=== PATIENT | female | born 1945 | race Caucasian/White ===

== ENCOUNTER 2019-04-21 12:59 | Inpatient (IN) | payer MEDICAID ==
[~2019-04-21] VITALS: Ht 144.8 cm; Wt 44.0 kg
[2019-04-21 13:10] VITALS: BP 159/76
--- NOTE | 2019-04-21 14:59 | NUR ---
PT AMBULATED TO BED 04
--- NOTE | 2019-04-21 15:40 | NUR ---
74 Y/O C/O TACHYCARDIA. PT VS STABLE, HR 64. PT STATES SHE HAS BEEN FEELING HER HEART RATE WAS INCREASED X1 DAY. PT DENIES CHEST PAIN, N/V/F OR RECENT ILLNESS. PT VS STABLE. PT ON MONITORS, BED LOWERED, SIDE RAIL X1 IN PLACE. FAMILY MEMBER AT BEDSIDE. BLAKE
--- NOTE | 2019-04-21 15:56 | NUR ---
LAB AT BEDSIDE DRAWING ORDERED LAB WORK.
--- NOTE | 2019-04-21 15:58 | NUR ---
X-RAY AT BEDSIDE PEFORMING ORDERED TEST.
--- NOTE | 2019-04-21 16:17 | NUR ---
PT RESTING COMFORTABLY, GAVE BLANKET. VS STABLE. FAMILY MEMBER AT BEDSIDE. PT INFORMED WAITING FOR TEST RESULTS.
[2019-04-21 16:19] LABS: BASOPHILS % (AUTO) 0.5 % (0.0-2.0); EOSINOPHILS # (AUTO) 0.3 K/uL (0-0.4); EOSINOPHILS % (AUTO) 2.6 % (0.0-4.0); HEMATOCRIT 37.2 % (36-48); HEMOGLOBIN 12.4 g/dL (12.0-16.0); LYMPHOCYTES # (AUTO) 6.9 K/uL (2.5-16.5); LYMPHOCYTES % (AUTO) 68.7 % (20.5-51.1); MEAN CORPUSCULAR HEMOGLOBIN 31 pg (27-31); MEAN CORPUSCULAR HGB CONC 33 g/dL (33-37); MEAN CORPUSCULAR VOLUME 93.7 fL (80-94); MONOCYTES # (AUTO) 0.5 K/uL (0.8-1.0); NEUTROPHILS # (AUTO) 2.3 K/uL (1.8-7.7); NEUTROPHILS % (AUTO) 23.2 % (42.2-75.2); PLATELET COUNT (AUTO) 278 K/uL (140-450); RED BLOOD CELL COUNT(AUTO) 3.97 MIL/uL (4.20-5.40); RED CELL DISTRIBUTION WIDTH 13.2 % (11.6-13.7)
--- NOTE | 2019-04-21 16:45 | NUR ---
PT AMBULATED TO RESTROOM WITHOUT DIFFICULTY.
[2019-04-21 16:50] LABS: ANION GAP 7.9 (8-16); CARBON DIOXIDE 27.5 mmol/L (21-32); CHLORIDE 103 mmol/L (98-107); CREATININE 0.7 mg/dL (0.6-1.3); GLUCOSE 122 mg/dL (74-106); POTASSIUM 3.4 mmol/L (3.5-5.1); SODIUM SERUM 135 mmol/L (136-145); UREA NITROGEN, BLOOD 23 mg/dL (7-18)
[2019-04-21 16:57] LABS: FREE T4 (FREE THYROXINE) 0.93 ng/dL (0.76-1.46); THYROID STIMULATING HORMONE 0.14 uIU/mL (0.34-3.74)
--- NOTE | 2019-04-21 17:03 | NUR ---
PT RESTING COMFORTABLY, VS STABLE. FAMILY AT BEDSIDE.
[2019-04-21] MEDS ORDERED: ONDANSETRON 4 MG/2 ML VIAL IVP PRN (18:00)
[2019-04-21] MEDS ORDERED: HYDROcodone/APAP 7.5/325 MG 1 TAB PO PRN (18:00)
[2019-04-21] MEDS ORDERED: ACETAMINOPHEN 325 MG TAB PO PRN (18:00)
[2019-04-21 19:10] VITALS: BP 140/70
--- NOTE | 2019-04-21 19:10 | NUR ---
RECIEVED PT FROM ER / WHEELCHAIR - ASMBULATES TO BED , AAOX4 , NID , IV SITE INTACT AND PATENT . NO C/O PAIN AT THIS TIME. POC DISCUSSED AND VERBALIZED UNDERSTANDING - CALL LIGHT WITHIN REACH , ON POWDER MIXER . RELATIVE ON BEDSIDE . ON SAFETY PRECAUTION PROTOCOL - REMINDS HER THE USES OF CALL LIGHT FOR ASSISTANCE OR HELP . ADM. ASSESSMENT DONE - MRSA SPECIMEN COLLECTED AND SENT TO LAB . WILL CONT. TO MONITOR.
--- NOTE | 2019-04-21 19:16 | NUR ---
Patient will be admitted to care of DR CHAIREZ. Admited to MED SURG TELE. Will go to [facility] Belongings list completed. Report to MELIA SALAZAR.
[2019-04-21 19:39] LABS: PHOSPHORUS 3.5 mg/dL (2.5-4.9)
[2019-04-21 19:40] LABS: PROTHROMBIN TIME 9.9 secs (10.8-13.4)
[2019-04-21] MEDS: NACL 0.9% 1,000 ML IV SCH (19:53)
[2019-04-21] MEDS: DOCUSATE SODIUM 100 MG GELCAP PO SCH (21:32)
--- NOTE | 2019-04-21 22:00 | NUR ---
RESTING ON BED - NO COMPLAIN MADE AT THIS TIME.
[2019-04-21] MEDS ORDERED: INSULIN LISPRO SLIDING SCALE 100 UNITS/ML VIAL SUBQ PRN (22:25)
[2019-04-21] MEDS ORDERED: DEXTROSE 50% 50 ML SYR IVP PRN (22:25)
[2019-04-21] MEDS: MELATONIN 3 MG TAB PO PRN (23:04)
[2019-04-22] VITALS: BP 145/92
--- NOTE | 2019-04-22 | NUR ---
MADE ROUNDS . NO S/SX OF ACUTE DISTRESS NOTED AT THIS TIME . CALL LIGHT WITHIN REACH.
--- NOTE | 2019-04-22 02:00 | NUR ---
SLEEPING - ON ACADEMIC AFFAIRS DIRECTOR.
--- NOTE | 2019-04-22 02:00 | NUR ---
SLEEPING - CHEST RISE AND FALL EQUALLY . WILL CONT. TO MONITOR.
[2019-04-22 04:00] VITALS: BP 150/70
--- NOTE | 2019-04-22 04:00 | NUR ---
MADE ROUNDS . NO S/SX OF ACUTE DISTRESS NOTED AT THIS TIME. WILL CONT. TO MONITOR.
[2019-04-22] MEDS ORDERED: NITROGLYCERIN 0.4 MG TAB SL PRN (04:25)
[2019-04-22] MEDS ORDERED: ALEN70TA9 PO (04:32)
[2019-04-22] MEDS ORDERED: HYDR-4030 PO (04:32)
[2019-04-22] MEDS ORDERED: HYDR5TAB PO (04:32)
[2019-04-22] MEDS ORDERED: METF500T PO (04:32)
[2019-04-22] MEDS ORDERED: SYN.1 PO (04:32)
[2019-04-22] MEDS ORDERED: HYDR-87 PO (04:32)
[2019-04-22] MEDS ORDERED: HYDROCORTISONE 5 MG PO SCH (04:35)
--- NOTE | 2019-04-22 06:00 | NUR ---
VOIDED FREELY - NO C/O ANY PAIN AT THIS TIME.
[2019-04-22] MEDS: BLOOD GLUCOSE MONITORING 1 DEV DEV FS SCH ×4 (06:15→21:03)
[2019-04-22 06:28] LABS: HEMATOCRIT 38.2 % (36-48); HEMOGLOBIN 12.8 g/dL (12.0-16.0); MEAN CORPUSCULAR HEMOGLOBIN 32 pg (27-31); MEAN CORPUSCULAR HGB CONC 34 g/dL (33-37); MEAN CORPUSCULAR VOLUME 93.9 fL (80-94); PLATELET COUNT (AUTO) 297 K/uL (140-450); RED BLOOD CELL COUNT(AUTO) 4.07 MIL/uL (4.20-5.40); RED CELL DISTRIBUTION WIDTH 13.3 % (11.6-13.7); WHITE BLOOD COUNT (AUTO) 9.4 K/uL (4.8-10.8)
[2019-04-22] MEDS ORDERED: LEVOTHYROXINE 0.1 MG TAB PO SCH ×2 (06:30)
[2019-04-22 06:37] LABS: MAGNESIUM 2.2 mg/dL (1.8-2.4); PHOSPHORUS 3.7 mg/dL (2.5-4.9)
[2019-04-22 06:54] LABS: ANION GAP 9.3 (8-16); CARBON DIOXIDE 30.2 mmol/L (21-32); CHLORIDE 103 mmol/L (98-107); CREATININE 0.8 mg/dL (0.6-1.3); GLUCOSE 87 mg/dL (74-106); POTASSIUM 3.5 mmol/L (3.5-5.1); SODIUM SERUM 139 mmol/L (136-145); UREA NITROGEN, BLOOD 18 mg/dL (7-18)
[2019-04-22 07:03] LABS: CHOL/HDL RATIO 5.1 (1-4.5)
--- NOTE | 2019-04-22 07:16 | NUR ---
ENDORSED TO AM SHIFT FOR CONT. OF CARE . PT IS ON STABLE CONDITION.
--- NOTE | 2019-04-22 07:20 | NUR ---
REPORT RECEIVED FROM NIGHT NURSE. PT SLEEPING, EASILY AROUSABLE DENIES CP NO S/S/ OF ACUTE DISTRESS NOTED, CALL LIGHT AND PERSONAL ITEMS WITHIN EASY REACH, WILL CONTINUE TO MONITOR.
[2019-04-22 07:22] LABS: EOSINOPHILS % (MANUAL) 2 % (0-4); LYMPHOCYTES % (MANUAL) 67 % (20-46); MONOCYTES % (MANUAL) 6 % (5-12)
[2019-04-22] MEDS: LEVOTHYROXINE 0.05 MG TAB PO SCH (07:40)
[2019-04-22 08:00] VITALS: BP 123/53
[2019-04-22] MEDS ORDERED: [UNRECOGNIZED DRUG - OTHER] PO SCH (09:00)
[2019-04-22] MEDS ORDERED: HYDROCHLOROTHIAZIDE PO SCH (09:00)
[2019-04-22] MEDS ORDERED: METOPROLOL 25 MG TAB PO SCH (09:00)
[2019-04-22] MEDS ORDERED: LISINOPRIL PO SCH (09:00)
[2019-04-22] MEDS ORDERED: HYDROCORTISONE 10 MG PO SCH (09:00)
[2019-04-22] MEDS: metFORMIN 500 MG TAB PO SCH (09:04)
[2019-04-22] MEDS: DOCUSATE SODIUM 100 MG GELCAP PO SCH ×2 (09:04→20:59)
[2019-04-22] MEDS: LISINOPRIL 20 MG TAB PO SCH (09:04)
[2019-04-22] MEDS: ASPIRIN 81 MG TAB.CHEW PO SCH (09:05)
[2019-04-22] MEDS: HYDROCHLOROTHIAZIDE 25 MG TAB PO SCH (09:05)
[2019-04-22] MEDS: FAMOTIDINE 20 MG TAB PO SCH (09:06)
--- NOTE | 2019-04-22 09:17 | NUR ---
PATIENT HAS BEEN SCREENED AND CATEGORIZED MODERATE NUTRITION RISK. PATIENT WILL BE SEEN WITHIN 3-5 DAYS OF ADMISSION. 04/24/19 04/26/[address]
[2019-04-22 09:46] LABS: APPEARANCE,URINE CLEAR (CLEAR); BILIRUBIN,URINE NEGATIVE (NEGATIVE); BLOOD, URINE TRACE-I (NEGATIVE); COLOR,URINE YELLOW (YELLOW); LEUKOCYTE ESTERASE ,URINE TRACE (NEGATIVE); NITRITE, URINE NEGATIVE (NEGATIVE); PH,URINE 6.5 (5.0-9.0); UGLUCOSE NEGATIVE (NEGATIVE)
[2019-04-22] MEDS: HYDROCORTISONE 10 MG TAB PO SCH (09:49)
[2019-04-22] MEDS: ATORVASTATIN 20 MG TAB PO SCH (09:49)
--- NOTE | 2019-04-22 10:00 | NUR ---
PT REMAINS A/O ABLE TO COMMUNICATE NEEDS. FAMILY AT BEDSIDE. DENIES CP NO S/S/ OF ACUTE DISTRESS NOTED, CALL LIGHT AND PERSONAL ITEMS REMAIN WITHIN EASY REACH, SAFETY PRECAUTION IN PLACE. WILL CONTINUE TO MONITOR.
[2019-04-22 10:02] LABS: RBC,URINE 0 /HPF (0-5); WBC,URINE 0-5 /HPF (0-5)
[2019-04-22 12:00] VITALS: BP 119/68
--- NOTE | 2019-04-22 13:00 | NUR ---
PT REMAINS A/O ABLE TO COMMUNICATE NEEDS. VISITORS AT BEDSIDE. DENIES CP NO S/S/ OF ACUTE DISTRESS NOTED, CALL LIGHT AND PERSONAL ITEMS REMAIN WITHIN EASY REACH, SAFETY PRECAUTION IN PLACE. WILL CONTINUE TO MONITOR.
[2019-04-22] MEDS: NACL 0.9% 1,000 ML IV SCH (13:57)
--- NOTE | 2019-04-22 14:51 | NUR ---
MIGUEL assessment/discharge plan High Risk DC Screen Yes Name: Agata Covarrubias Home Relationship: daughter Pre-Admission Living Arrangements: Lives with Other Other: Agata Covarrubias Prior ADL Independent Current Home Health Name/Tel: N/A Current DME/02 Name/Tel: per patient, she will obtain blood glucose meter Current Hospice Name/Tel: N/A Current Dialysis Name/Tel: N/A Healthcare Decision Maker: Patient Advance Directive see note below Information Taught: Community Resources Person Taught: Patient Teaching Tools: Community Resources Verbal Factors Affecting Learning: None Participation Level: Active Evaluation: Gestures Understanding Verbalizes Understanding Educator: MIGUEL Gracia Tentative Discharge Plan Summary: Patient is a 74 year old female admitted with a PMH of HTN, DM-II, and hypothyroid disease. I met with patient at bedside. Patient alert and oriented x4. Patient speaks Fijian. Patient lives at home with her daughter Agata Covarrubias and plans to return home upon discharge. She stated she follows up with her pcp at a [facility] in [place]. She does not recall name of hospital or name of pcp. She does not have any difficulty filling her prescriptions at pharmacy. She denied hx of mental health. She also denied alcohol/substance abuse. She walks or takes bus to get to grocery store or pharmacy. She stated she has an Advance Directive at home and she will call her friend from [facility], Lyndsay Davidson to bring Advance Directive to hospital. I provided her with education on [employer] www.ConnectIE.org for community resources. Fishing Floats Assembler and/or Tight Barrel Inspector will follow up as needed. Signature: MIGUEL Gracia Date: Apr 22, 2019
[2019-04-22 16:00] VITALS: BP 141/55
--- NOTE | 2019-04-22 16:00 | NUR ---
PT RESTING AT THIS TIME, EASILY AROUSABLE, DENIES CP NO S/S/ OF ACUTE DISTRESS NOTED, CALL LIGHT AND PERSONAL ITEMS REMAIN WITHIN EASY REACH, SAFETY PRECAUTION IN PLACE. WILL CONTINUE TO MONITOR.
--- NOTE | 2019-04-22 16:24 | NUR ---
DISCHARGE PLANNING: DISCHARGE PLANNING: A 74 Y/O FEMALE PATIENT FROM HOME, WHO CAME IN DUE TO PALPITATIONS. PAST MEDICAL HISTORY INCLUDE HTN, DM II, HYPERTHYROIDISM, OSTEOPOROSIS AND OSTEOARTHRITIS. INITIAL DIAGNOSIS OF ATYPICAL CHEST R/O ACS. CURRENT LABS INCLUDE WBC 9.4, H/H 12.8/38.2, TROP 0.017. CURRENT MEDS INCLUDE HYDROCORTISONE PO. CARDIO CONSULT IN PLACE. DC PLAN TO HOME ONCE STABLE.
[2019-04-22] MEDS ORDERED: HYDROCORTISONE 10 MG TAB PO SCH (17:00)
--- NOTE | 2019-04-22 18:00 | NUR ---
PT REMAINS A/O ABLE TO COMMUNICATE NEEDS. EATING DINNER, FAMILY AT BEDSIDE. DENIES CHEST PAIN. NO S/S/ OF ACUTE DISTRESS NOTED, CALL LIGHT AND PERSONAL ITEMS REMAIN WITHIN EASY REACH, SAFETY PRECAUTION IN PLACE. WILL CONTINUE TO MONITOR.
--- NOTE | 2019-04-22 19:20 | NUR ---
PT REMAINS A/O ABLE TO COMMUNICATE NEEDS. DENIES CP NO S/S/ OF ACUTE DISTRESS NOTED, REPORT ENDORED TO ONCOMING NURSE.
--- NOTE | 2019-04-22 19:20 | NUR ---
RECIEVED PT. AAOX4 , NID -O2 SAT WNL . ON ASSISTANT FINANCE MANAGER - SR , NO C/O PAIN AT THIS THIS , IV SITE IN TACT AND PATENT . POC DISCUSSED AND VERBALIZED UNDERSTANDING - CALL LIGHT WITHIN REACH - REMINDS HER THE USE OF CALL LIGHT WHENEVER SHE NEEDED HELP / ASSISTANCE . DAUGHTER AT BEDSIDE . WILL CONT. TO MONITOR.
[2019-04-22 20:00] VITALS: BP 110/60
[2019-04-22] MEDS ORDERED: ATORVASTATIN 20 MG TAB PO SCH (21:00)
--- NOTE | 2019-04-22 22:00 | NUR ---
MADE ROUNDS . NO S/SX OF ACUTE DISTRESS NOTED AT THIS TIME . RESTING ON BED COMFORTABLY . CALL LIGHT WITHIN REACH.
[2019-04-23] VITALS: BP 140/57
[2019-04-23] MEDS: MELATONIN 3 MG TAB PO PRN (00:18)
--- NOTE | 2019-04-23 01:00 | NUR ---
C/O CHEST PRESSURE - ON WET POUR SUPERVISOR . SB/SA ON TRACING - W/ SLIGHTLY LOW DIASTOLIC BP 57 MMHG - BP 140/57 . TX 54.-O2 SAT WNL - REFER TO DR RICE. WAITING FOR FURTHER ORDERS. CALL LIGHT WITHIN REACH.
--- NOTE | 2019-04-23 02:00 | NUR ---
NO FURTHER ORDERS FROM DR. RICE . INFORMED CHARGE NURSE ABOUT THIS MATTER. WILL CONT. TO MONITOR THE PT.- ON LEAD WAREHOUSE ASSOCIATE. CALL LIGHT WITHIN REACH.
--- NOTE | 2019-04-23 03:00 | NUR ---
RE ASSESS THE PT. PT SAID THE CHEST PRESSURE GONE AWAY . ASSIST TO THE BATHROOM - VOIDED FREELY. BACK TO BED - NO C/O PAIN AT THIS TIME . NO SIGNS OF DISTRESS NOTED AT THIS TIME. CALL LIGHT WITHIN REACH. WILL CONT. TO MONITOR.
[2019-04-23 04:00] VITALS: BP 130/60
--- NOTE | 2019-04-23 04:00 | NUR ---
MADE ROUNDS . SLEEPING - NO SIGNS OF DISTRESS NOTED AT THIS TIME - CALL LIGHT WITHIN REACH. WILL CONT. TO MONITOR
--- NOTE | 2019-04-23 05:00 | NUR ---
RE VISIT THE PT . PT IS COMPLAINING AGAIN CHEST PRESSURE ASSESS PT - BP 130/57MMHG N, TN 54 O2 SAT 99% - WILL REFER TO DR. RICE. Addendum: 04/23/19 at 0547 by Rosamaria Hedrick RN WILL REFER TO DR. RICE IF I WILL GIVE THE PRN NITROSTAT/TAB /SL INSPITE OF LOW DBP AND LOW TN.- [id number]
--- NOTE | 2019-04-23 05:20 | NUR ---
GIVE NITROSTAT SL ORDERED BY DR BRUCE . WILL CONT. TO MONITOR.
--- NOTE | 2019-04-23 05:30 | NUR ---
NO AVAILABLE NITROSTAT ON THE FLOOR - REFER TO NURSE FRUCTOSE LOADER - WAITING THE MED.
[2019-04-23 05:53] LABS: HEMATOCRIT 36.1 % (36-48); MEAN CORPUSCULAR HEMOGLOBIN 31 pg (27-31); MEAN CORPUSCULAR HGB CONC 33 g/dL (33-37); MEAN CORPUSCULAR VOLUME 94.1 fL (80-94); PLATELET COUNT (AUTO) 279 K/uL (140-450); RED BLOOD CELL COUNT(AUTO) 3.83 MIL/uL (4.20-5.40); RED CELL DISTRIBUTION WIDTH 13.3 % (11.6-13.7); WHITE BLOOD COUNT (AUTO) 9.9 K/uL (4.8-10.8)
--- NOTE | 2019-04-23 05:56 | NUR ---
NITROSTAT /TAB /SL GIVEN - WILL CONT. TO MONITOR - ON GYROSCOPE TECHNICIAN - CALL LIGHT WITHIN REACH.
[2019-04-23] MEDS: BLOOD GLUCOSE MONITORING 1 DEV DEV FS SCH ×3 (06:03→16:49)
[2019-04-23 06:04] LABS: ANION GAP 9.3 (8-16); CARBON DIOXIDE 31.3 mmol/L (21-32); CHLORIDE 106 mmol/L (98-107); CREATININE 0.7 mg/dL (0.6-1.3); GLUCOSE 78 mg/dL (74-106); POTASSIUM 3.6 mmol/L (3.5-5.1); SODIUM SERUM 143 mmol/L (136-145); UREA NITROGEN, BLOOD 18 mg/dL (7-18)
[2019-04-23 06:15] LABS: PHOSPHORUS 3.7 mg/dL (2.5-4.9)
[2019-04-23] MEDS: LEVOTHYROXINE 0.05 MG TAB PO SCH (06:49)
--- NOTE | 2019-04-23 07:37 | NUR ---
RECEIVED PT FROM LEAD MINER RN FOR CONTINUITY OF CARE. PT IS AAOX4, ALBANIAN SPEAKING ONLY. PER PT SHE DOES NOT HAS CHEST PAIN. SHE HAS SORENESS FROM RECENT BRONCHITIS(PER PT). PT HAS IV IN THE RIGHT AC 20G INFUSING 50ML/HR. PT ON CCHO DIET. AMBULATORY TOLERATED AND WITH STANDBY ASSIST. PT ON RA, LUNG SOUNDS CLEAR. SKIN IS INTACT. ALL NEEDS CURRENTLY MET. DISCUSSED POC WITH PT AND PT VERBALIZED UNDERSTANDING. WILL ROUND FREQUENTLY ON PT. BED IN LOW POSITION, CALL LIGHT WITHIN REACH.
--- NOTE | 2019-04-23 07:38 | NUR ---
ENDORSED TO AM SHIFT FOR CONT. OF CARE . PT IS ON STABLE CONDITION.- ON SOCIAL SCIENCES LECTURER.
[2019-04-23 08:00] VITALS: BP 141/46
[2019-04-23 08:28] LABS: EOSINOPHILS % (MANUAL) 1 % (0-4); LYMPHOCYTES % (MANUAL) 60 % (20-46); MONOCYTES % (MANUAL) 5 % (5-12)
[2019-04-23] MEDS: NACL 0.9% 1,000 ML IV SCH (09:57)
--- NOTE | 2019-04-23 10:24 | NUR ---
ADMINISTERED PT MORNING MEDS. PT TOLERATED WELL. ALL OTHER NEEDS MET. WILL CONTINUE TO ROUND FREQUENTLY ON PT.
[2019-04-23] MEDS: DOCUSATE SODIUM 100 MG GELCAP PO SCH (10:41)
[2019-04-23] MEDS: ATORVASTATIN 20 MG TAB PO SCH (10:41)
[2019-04-23] MEDS: metFORMIN 500 MG TAB PO SCH (10:42)
[2019-04-23] MEDS: ASPIRIN 81 MG TAB.CHEW PO SCH (10:42)
[2019-04-23] MEDS: LISINOPRIL 20 MG TAB PO SCH (10:42)
[2019-04-23] MEDS: FAMOTIDINE 20 MG TAB PO SCH (10:42)
[2019-04-23] MEDS: HYDROCORTISONE 10 MG TAB PO SCH (10:43)
[2019-04-23] MEDS: HYDROCHLOROTHIAZIDE 25 MG TAB PO SCH (10:43)
[2019-04-23 12:00] VITALS: BP 145/56
--- NOTE | 2019-04-23 12:02 | NUR ---
PT RESTING IN BED WITH DAUGHTER AT BEDSIDE. ALL OTHER NEEDS MET. WILL CONTINUE TO ROUND FREQUENTLY ON PT.
[2019-04-23] MEDS ORDERED: SYN.05 PO (12:29)
--- NOTE | 2019-04-23 14:13 | NUR ---
PT RESTING IN BEDSIDE CHAIR. ALL NEEDS MET. WILL CONTINUE TO ROUND FREQUENTLY ON PT.
[2019-04-23 16:00] VITALS: BP 130/55
--- NOTE | 2019-04-23 16:50 | NUR ---
PT DISCHARGED HOME FOR SELF CARE. DISCUSSED DISCHARGE PAPERWORK WITH PT AND PT VERBALIZED UNDERSTANDING. PT SIGNED ALL DISCHARGE PAPERWORK. IV REMOVED WITH TIP INTACT. WRIST BAND REMOVED AND PLACED IN SHRED BIN. ALL PERSONAL BELONGINGS TAKEN WITH PT. PT LEFT IN STABLE CONDITION ACCOMPANIED BY HER DAUGHTER
[2019-04-27] MEDS ORDERED: ALENDRONATE SODIUM 70 MG TAB PO SCH (09:00)
== END 2019-04-23 16:50 | disposition home or self-care (01) | DRG 427 ==
LOC: MED 12:59 → MMU 18:02
PROVIDERS: ADMIT General Practice; ATTEND General Practice
DX: E03.9 Hypothyroidism, unspecified (principal); I48.91 Unspecified atrial fibrillation; E11.9 Type 2 diabetes mellitus without complications; R07.89 Other chest pain; K21.9 Gastro-esophageal reflux disease without esophagitis; I10 Essential (primary) hypertension; Z82.49 Family history of ischemic heart disease and other diseases of the circulatory system; Z83.3 Family history of diabetes mellitus; M81.0 Age-related osteoporosis without current pathological fracture; M19.90 Unspecified osteoarthritis, unspecified site; E87.6 Hypokalemia
CPT/HCPCS: 36415; 71045; 80048; 81001; 82150; 82948; 83036; 83690; 83735; 83880; 84100; 84439; 84443; 84484; 85025; 85610; 85730; 87081; 93005; 99285; J1644; J7030; Q0092

== ENCOUNTER 2020-02-04 12:28 | Emergency (ER) | payer MEDICAID ==
[~2020-02-04] VITALS: Ht 146.1 cm; Wt 55.5 kg
[~2020-02-04 12:28] MED LIST: ALEN70TA9 PO; HYDR-3926 PO; HYDR-87 PO; HYDR5TAB PO; METF500T PO; SYN.05 PO
[2020-02-04 12:31] VITALS: BP 166/84
[2020-02-04 13:16] LABS: BASOPHILS # (AUTO) 0.1 K/uL (0.00-0.22); BASOPHILS % (AUTO) 0.9 % (0.0-2.0); EOSINOPHILS # (AUTO) 0.1 K/uL (0-0.4); EOSINOPHILS % (AUTO) 2.3 % (0.0-4.0); HEMATOCRIT 38.1 % (36-48); HEMOGLOBIN 13.3 g/dL (12.0-16.0); LYMPHOCYTES # (AUTO) 2.6 K/uL (2.5-16.5); MEAN CORPUSCULAR HEMOGLOBIN 33 pg (27-31); MEAN CORPUSCULAR HGB CONC 35 g/dL (33-37); MEAN CORPUSCULAR VOLUME 94.9 fL (80-94); MONOCYTES # (AUTO) 0.3 K/uL (0.8-1.0); MONOCYTES % (AUTO) 6.3 % (1.7-9.3); NEUTROPHILS # (AUTO) 2.2 K/uL (1.8-7.7); NEUTROPHILS % (AUTO) 41.5 % (42.2-75.2); PLATELET COUNT (AUTO) 267 K/uL (140-450); RED BLOOD CELL COUNT(AUTO) 4.02 MIL/uL (4.20-5.40); RED CELL DISTRIBUTION WIDTH 12.7 % (11.6-13.7); WHITE BLOOD COUNT (AUTO) 5.4 K/uL (4.8-10.8)
[2020-02-04 13:18] LABS: APPEARANCE,URINE CLEAR (CLEAR); BILIRUBIN,URINE NEGATIVE (NEGATIVE); COLOR,URINE YELLOW (YELLOW); LEUKOCYTE ESTERASE ,URINE NEGATIVE (NEGATIVE); NITRITE, URINE NEGATIVE (NEGATIVE); UGLUCOSE NEGATIVE (NEGATIVE)
[2020-02-04] MEDS: ONDANSETRON 4 MG/2 ML VIAL IVP ONE (13:21)
[2020-02-04] MEDS: NACL 0.9% 1,000 ML IV SCH (13:21)
[2020-02-04 13:28] LABS: BLOOD, URINE TRACE (NEGATIVE)
[2020-02-04 13:30] LABS: RBC,URINE 0-5 /HPF (0-5); WBC,URINE 0-5 /HPF (0-5)
[2020-02-04 13:31] LABS: ALBUMIN 3.7 g/dL (3.4-5.0); ANION GAP 10.8 (8-16); ASPARTATE AMINOTRANSFERASE 43 U/L (15-37); CARBON DIOXIDE 29.1 mmol/L (21-32); CHLORIDE 98 mmol/L (98-107); CREATININE 0.9 mg/dL (0.6-1.3); GLUCOSE 150 mg/dL (74-106); LIPASE 297 U/L (73-393); POTASSIUM 3.9 mmol/L (3.5-5.1); SODIUM SERUM 134 mmol/L (136-145); TOTAL BILIRUBIN 0.4 mg/dL (0.0-1.0); UREA NITROGEN, BLOOD 15 mg/dL (7-18)
[2020-02-04 15:31] VITALS: BP 156/81
== END 2020-02-04 15:32 | disposition home or self-care (01) ==
LOC: MED 12:28
DX: K52.9 Noninfective gastroenteritis and colitis, unspecified (principal); B34.9 Viral infection, unspecified; E11.9 Type 2 diabetes mellitus without complications; E07.9 Disorder of thyroid, unspecified; I10 Essential (primary) hypertension; Z20.828 Contact with and (suspected) exposure to other viral communicable diseases; Z79.899 Other long term (current) drug therapy
CPT/HCPCS: 36415; 74176; 80053; 81001; 83690; 85025; 87426; 96361; 96374; 99284; J2405; J7030

== ENCOUNTER 2020-04-29 00:35 | Emergency (ER) | payer MEDICAID ==
[~2020-04-29] VITALS: Ht 149.9 cm; Wt 54.0 kg
[~2020-04-29 00:35] MED LIST changes: -ALEN70TA9 PO; +FOS70 PO
[2020-04-29 00:48] VITALS: BP 182/84
--- NOTE | 2020-04-29 00:59 | NUR ---
AMBULATED TO ER BED 3
--- NOTE | 2020-04-29 01:03 | NUR ---
RECEIVED IN BED 3, PRIMARILY AMHARIC SPEAKING FEMALE, WITH C/O DIZZINESS X 3 DAYS WITH VOMITING. IS AWAKE AND ALERT, FOLLOWS COMMANDS, HAND LEAD BLENDER STRONG AND EQUAL, NOELLE. SKIN IS WARM AND DRY. ATTACHED TO CM = SR
--- NOTE | 2020-04-29 01:05 | NUR ---
DR. GARAY AT BEDSIDE FOR EXAM
[2020-04-29] MEDS ORDERED: NACL 0.9% 1,000 ML IV SCH (01:15)
[2020-04-29] MEDS ORDERED: MECLIZINE 25 MG TAB PO ONE (01:15)
[2020-04-29] MEDS ORDERED: ONDANSETRON 4 MG/2 ML VIAL IVP ONE (01:15)
[2020-04-29 01:36] LABS: APPEARANCE,URINE CLEAR (CLEAR); BILIRUBIN,URINE NEGATIVE (NEGATIVE); BLOOD, URINE 1+ (NEGATIVE); COLOR,URINE YELLOW (YELLOW); LEUKOCYTE ESTERASE ,URINE NEGATIVE (NEGATIVE); NITRITE, URINE NEGATIVE (NEGATIVE); PH,URINE 7.5 (5.0-9.0); UGLUCOSE NEGATIVE (NEGATIVE)
[2020-04-29 01:38] LABS: BASOPHILS % (AUTO) 0.4 % (0.0-2.0); EOSINOPHILS # (AUTO) 0.1 K/uL (0-0.4); EOSINOPHILS % (AUTO) 1.4 % (0.0-4.0); HEMATOCRIT 37.8 % (36-48); HEMOGLOBIN 13.2 g/dL (12.0-16.0); LYMPHOCYTES # (AUTO) 4.1 K/uL (2.5-16.5); MEAN CORPUSCULAR HEMOGLOBIN 33 pg (27-31); MEAN CORPUSCULAR HGB CONC 35 g/dL (33-37); MEAN CORPUSCULAR VOLUME 93.5 fL (80-94); MONOCYTES # (AUTO) 0.3 K/uL (0.8-1.0); NEUTROPHILS # (AUTO) 2.4 K/uL (1.8-7.7); NEUTROPHILS % (AUTO) 34.2 % (42.2-75.2); PLATELET COUNT (AUTO) 249 K/uL (140-450); RED BLOOD CELL COUNT(AUTO) 4.04 MIL/uL (4.20-5.40)
[2020-04-29 01:46] LABS: WBC,URINE 0-5 /HPF (0-5)
--- NOTE | 2020-04-29 01:46 | NUR ---
TO CT VIA W/C
[2020-04-29 01:53] LABS: ALBUMIN 3.8 g/dL (3.4-5.0); ANION GAP 14.6 (8-16); ASPARTATE AMINOTRANSFERASE 31 U/L (15-37); CARBON DIOXIDE 25.9 mmol/L (21-32); CHLORIDE 101 mmol/L (98-107); GLUCOSE 166 mg/dL (74-106); POTASSIUM 3.5 mmol/L (3.5-5.1); SODIUM SERUM 138 mmol/L (136-145); TOTAL BILIRUBIN 0.3 mg/dL (0.0-1.0); UREA NITROGEN, BLOOD 13 mg/dL (7-18)
--- NOTE | 2020-04-29 02:00 | NUR ---
RETURNED FROM CT
[2020-04-29 03:40] VITALS: BP 157/95
--- NOTE | 2020-04-29 03:40 | NUR ---
Patient discharged with v/s stable. Written and verbal after care instructions given and explained. Patient alert, oriented and verbalized understanding of instructions. Ambulatory with steady gait. All questions addressed prior to discharge. ID band removed. Patient advised to follow up with PMD. Rx of MECLIZINE given. Patient educated on indication of medication including possible reaction and side effects. Opportunity to ask questions provided and answered.ARM BAND REMOVED
--- NOTE | 2020-05-03 13:45 | NUR ---
LATE ENTRY -- NORMAL SALINE INFUSION COMPLETED AT 0253 04/30/20
== END 2020-04-29 03:40 | disposition home or self-care (01) ==
LOC: MED 00:35
DX: R42 Dizziness and giddiness (principal); R11.2 Nausea with vomiting, unspecified; E86.0 Dehydration; E11.9 Type 2 diabetes mellitus without complications; I10 Essential (primary) hypertension; Z79.899 Other long term (current) drug therapy
CPT/HCPCS: 36415; 70450; 80053; 81001; 84484; 85025; 93005; 96361; 96374; 99285; J2405; J7030; J8597

== ENCOUNTER 2020-09-24 15:39 | Emergency (ER) | payer MEDICAID ==
[~2020-09-24] VITALS: Ht 154.9 cm; Wt 66.2 kg
--- NOTE | 2020-09-24 15:48 | NUR ---
PT AMBULATED TO BED 2
[2020-09-24 16:01] VITALS: BP 190/80
--- NOTE | 2020-09-24 16:10 | NUR ---
75 Y/O FEMALE BIB DAUGHTER C/O CHEST PAIN 11/16 DESCRIBES PRESSURE RADIATING TO LEFT ARM CAUSING NUMBNESS X2DAYS. PT STATES SHE SAW PCP AND HAD A HEART MONITOR PLACED [id number]. PT DENIES N/V/D, DENIES FEVER/CHILLS. PMH: HTN, DM, HYPOTHYROIDISM, PITUITARY GLAND ENLARGED, RA, AND OSTEOPOROSIS. NKA
--- NOTE | 2020-09-24 16:23 | NUR ---
SHERIFFS DETECTIVE AT PT BEDSIDE.
--- NOTE | 2020-09-24 16:51 | NUR ---
PATIENT TAKEN TO CT VIA NINO
[2020-09-24 16:53] LABS: BASOPHILS % (AUTO) 0.4 % (0.0-2.0); EOSINOPHILS # (AUTO) 0.8 K/uL (0-0.4); EOSINOPHILS % (AUTO) 7.7 % (0.0-4.0); HEMATOCRIT 35.2 % (36-48); HEMOGLOBIN 12.1 g/dL (12.0-16.0); LYMPHOCYTES # (AUTO) 3.7 K/uL (2.5-16.5); LYMPHOCYTES % (AUTO) 34.4 % (20.5-51.1); MEAN CORPUSCULAR HEMOGLOBIN 33 pg (27-31); MEAN CORPUSCULAR HGB CONC 34 g/dL (33-37); MEAN CORPUSCULAR VOLUME 96.2 fL (80-94); MONOCYTES # (AUTO) 0.7 K/uL (0.8-1.0); MONOCYTES % (AUTO) 6.4 % (1.7-9.3); NEUTROPHILS # (AUTO) 5.5 K/uL (1.8-7.7); NEUTROPHILS % (AUTO) 51.1 % (42.2-75.2); PLATELET COUNT (AUTO) 253 K/uL (140-450); RED BLOOD CELL COUNT(AUTO) 3.66 MIL/uL (4.20-5.40); RED CELL DISTRIBUTION WIDTH 12.9 % (11.6-13.7); WHITE BLOOD COUNT (AUTO) 10.8 K/uL (4.8-10.8)
[2020-09-24 17:14] LABS: ANION GAP 13.2 (8-16); CARBON DIOXIDE 27.1 mmol/L (21-32); CHLORIDE 105 mmol/L (98-107); CREATININE 1.1 mg/dL (0.6-1.3); GLUCOSE 213 mg/dL (74-106); POTASSIUM 3.3 mmol/L (3.5-5.1); SODIUM SERUM 142 mmol/L (136-145); UREA NITROGEN, BLOOD 20 mg/dL (7-18)
[2020-09-24 17:40] LABS: MAGNESIUM 2.1 mg/dL (1.8-2.4); PHOSPHORUS 3.6 mg/dL (2.5-4.9)
[2020-09-24 17:42] LABS: ALBUMIN 4.1 g/dL (3.4-5.0); ASPARTATE AMINOTRANSFERASE 20 U/L (15-37); LIPASE 236 U/L (73-393)
[2020-09-24 18:09] LABS: TOTAL BILIRUBIN 0.3 mg/dL (0.0-1.0)
[2020-09-24] MEDS ORDERED: ASPIRIN 325 MG TAB PO ONE (18:20)
[2020-09-24] MEDS ORDERED: ASPI-1884 PO (18:25)
[2020-09-24 18:38] VITALS: BP 151/73
--- NOTE | 2020-09-24 18:39 | NUR ---
Patient discharged with v/s stable. Written and verbal after care instructions given and explained. Patient alert, oriented and verbalized understanding of instructions. Ambulatory with steady gait. All questions addressed prior to discharge. ID band removed. Patient advised to follow up with PMD. Rx of aspirin 81 mg PO daily given. Patient educated on indication of medication including possible reaction and side effects. Opportunity to ask questions provided and answered.
== END 2020-09-24 18:39 | disposition home or self-care (01) ==
LOC: MED 15:39
DX: R07.89 Other chest pain (principal); R20.0 Anesthesia of skin; E11.9 Type 2 diabetes mellitus without complications; I10 Essential (primary) hypertension; E03.9 Hypothyroidism, unspecified; Z79.84 Long term (current) use of oral hypoglycemic drugs; Z79.82 Long term (current) use of aspirin; Z79.899 Other long term (current) drug therapy; Z98.890 Other specified postprocedural states
CPT/HCPCS: 36415; 70450; 71045; 72125; 80053; 83690; 83735; 83880; 84100; 84484; 85025; 93005; 99285

== ENCOUNTER 2021-12-11 17:35 | Emergency (ER) | payer MEDICAID ==
[~2021-12-11] VITALS: Ht 142.2 cm; Wt 59.9 kg
[~2021-12-11 17:35] MED LIST changes: +ASPI-1749 PO; +METF-346 PO; -METF500T PO
[2021-12-11 17:44] VITALS: BP 161/74
[2021-12-11 17:58] LABS: BASOPHILS # (AUTO) 0.1 K/uL (0.00-0.22); BASOPHILS % (AUTO) 1.1 % (0.0-2.0); EOSINOPHILS # (AUTO) 0.1 K/uL (0-0.4); EOSINOPHILS % (AUTO) 0.6 % (0.0-4.0); HEMATOCRIT 37.7 % (36-48); HEMOGLOBIN 12.7 g/dL (12.0-16.0); LYMPHOCYTES # (AUTO) 4.8 K/uL (2.5-16.5); LYMPHOCYTES % (AUTO) 39.2 % (20.5-51.1); MEAN CORPUSCULAR HEMOGLOBIN 32 pg (27-31); MEAN CORPUSCULAR HGB CONC 34 g/dL (33-37); MONOCYTES # (AUTO) 0.8 K/uL (0.8-1.0); MONOCYTES % (AUTO) 6.7 % (1.7-9.3); NEUTROPHILS # (AUTO) 6.5 K/uL (1.8-7.7); NEUTROPHILS % (AUTO) 52.4 % (42.2-75.2); PLATELET COUNT (AUTO) 363 K/uL (140-450); RED BLOOD CELL COUNT(AUTO) 3.97 MIL/uL (4.20-5.40); RED CELL DISTRIBUTION WIDTH 13.6 % (11.6-13.7); WHITE BLOOD COUNT (AUTO) 12.4 K/uL (4.8-10.8)
[2021-12-11] MEDS ORDERED: KETOROLAC 15 MG/ML VIAL IM ONE (18:10)
[2021-12-11] MEDS ORDERED: MECLIZINE 25 MG TAB PO ONE (18:10)
[2021-12-11 18:21] LABS: ALBUMIN 3.9 g/dL (3.4-5.0); ASPARTATE AMINOTRANSFERASE 22 U/L (15-37); CARBON DIOXIDE 24.5 mmol/L (21-32); CHLORIDE 104 mmol/L (98-107); CREATININE 1.3 mg/dL (0.6-1.3); GLUCOSE 126 mg/dL (74-106); POTASSIUM 3.5 mmol/L (3.5-5.1); SODIUM SERUM 142 mmol/L (136-145); TOTAL BILIRUBIN 0.4 mg/dL (0.0-1.0); UREA NITROGEN, BLOOD 30 mg/dL (7-18)
[2021-12-11 19:34] LABS: APPEARANCE,URINE CLEAR (CLEAR); BILIRUBIN,URINE NEGATIVE (NEGATIVE); BLOOD, URINE TRACE-I (NEGATIVE); COLOR,URINE YELLOW (YELLOW); LEUKOCYTE ESTERASE ,URINE TRACE (NEGATIVE); NITRITE, URINE NEGATIVE (NEGATIVE); UGLUCOSE NEGATIVE (NEGATIVE)
[2021-12-11 19:38] LABS: RBC,URINE 0-5 /HPF (0-5); WBC,URINE 0-5 /HPF (0-5)
[2021-12-11] MEDS ORDERED: NITR100C7 PO (20:17)
[2021-12-11] MEDS ORDERED: MECL-303 PO (20:17)
[2021-12-11] MEDS ORDERED: ACET-10509 PO (20:17)
[2021-12-11 21:30] VITALS: BP 135/55
== END 2021-12-11 21:30 | disposition home or self-care (01) ==
LOC: MED 17:35
DX: N39.0 Urinary tract infection, site not specified (principal); Z20.822 Contact with and (suspected) exposure to COVID-19; R42 Dizziness and giddiness; R53.81 Other malaise; E11.9 Type 2 diabetes mellitus without complications; I10 Essential (primary) hypertension; E03.9 Hypothyroidism, unspecified; Z79.899 Other long term (current) drug therapy; Z79.82 Long term (current) use of aspirin; Z79.2 Long term (current) use of antibiotics
CPT/HCPCS: 36415; 71045; 80053; 81001; 83880; 84443; 84484; 85025; 87426; 87804; 93005; 96372; 99285; J1885; J8597

== ENCOUNTER 2022-08-10 16:18 | Inpatient (IN) | payer MEDICAID ==
[~2022-08-10] VITALS: Ht 152.4 cm; Wt 84.8 kg
[~2022-08-10 16:18] MED LIST changes: +ACET-10509 PO; +MECL-303 PO; +NITR100C7 PO
[2022-08-10 16:23] VITALS: BP 139/66
[2022-08-10] MEDS ORDERED: cefTRIAXone 1,000 MG in DEXT 5% MINI-BAG PLUS 50 ML IV ONE (16:30)
--- NOTE | 2022-08-10 16:40 | NUR ---
77 years old female presents to er with daughter c/o gen weakness with nausea, denies cp, sob.
[2022-08-10] MEDS ORDERED: NACL 0.9% 1,000 ML IV ONE (16:45)
[2022-08-10 16:52] LABS: APPEARANCE,URINE CLEAR (CLEAR); BILIRUBIN,URINE NEGATIVE (NEGATIVE); BLOOD, URINE NEGATIVE (NEGATIVE); COLOR,URINE YELLOW (YELLOW); LEUKOCYTE ESTERASE ,URINE 1+ (NEGATIVE); NITRITE, URINE NEGATIVE (NEGATIVE); PH,URINE 6.5 (5.0-9.0); UGLUCOSE NEGATIVE (NEGATIVE)
[2022-08-10 17:01] LABS: BASOPHILS # (AUTO) 0.1 K/uL (0.00-0.22); BASOPHILS % (AUTO) 1.4 % (0.0-2.0); EOSINOPHILS # (AUTO) 0.2 K/uL (0-0.4); EOSINOPHILS % (AUTO) 2.4 % (0.0-4.0); HEMATOCRIT 35.6 % (36-48); HEMOGLOBIN 12.7 g/dL (12.0-16.0); LYMPHOCYTES % (AUTO) 47.1 % (20.5-51.1); MEAN CORPUSCULAR HEMOGLOBIN 32 pg (27-31); MEAN CORPUSCULAR HGB CONC 36 g/dL (33-37); MONOCYTES # (AUTO) 0.9 K/uL (0.8-1.0); MONOCYTES % (AUTO) 14.6 % (1.7-9.3); NEUTROPHILS # (AUTO) 2.2 K/uL (1.8-7.7); NEUTROPHILS % (AUTO) 34.5 % (42.2-75.2); PLATELET COUNT (AUTO) 275 K/uL (140-450); RED CELL DISTRIBUTION WIDTH 12.8 % (11.6-13.7); WHITE BLOOD COUNT (AUTO) 6.3 K/uL (4.8-10.8)
[2022-08-10] MEDS ORDERED: cefTRIAXone 1,000 MG VIAL ONE (17:01)
[2022-08-10 17:07] LABS: RBC,URINE 0-5 /HPF (0-5)
[2022-08-10 17:16] LABS: ALBUMIN 3.3 g/dL (3.4-5.0); ANION GAP 6.6 (8-16); ASPARTATE AMINOTRANSFERASE 33 U/L (15-37); CARBON DIOXIDE 30.3 mmol/L (21-32); CHLORIDE 89 mmol/L (98-107); CREATININE 0.8 mg/dL (0.6-1.3); GLUCOSE 155 mg/dL (74-106); SODIUM SERUM 123 mmol/L (136-145); TOTAL BILIRUBIN 0.5 mg/dL (0.0-1.0); UREA NITROGEN, BLOOD 7 mg/dL (7-18)
[2022-08-10 17:22] LABS: POTASSIUM 2.9 mmol/L (3.5-5.1)
[2022-08-10] MEDS ORDERED: POTASSIUM CHLORIDE 10 MEQ TABER PO ONE (17:40)
--- NOTE | 2022-08-10 17:50 | NUR ---
patient with low potassium dr Franklin notified, Po coverage given tolerated well, vss.
[2022-08-10] MEDS ORDERED: DEXT 5% /NACL 0.9% 1,000 ML IV SCH (18:35)
[2022-08-10] MEDS ORDERED: ATOR10TA PO (18:46)
[2022-08-10] MEDS ORDERED: [UNRECOGNIZED DRUG - CODE] PO (18:46)
[2022-08-10] MEDS ORDERED: GLIP5TER PO (18:46)
[2022-08-10] MEDS ORDERED: IBUP-2213 PO (18:46)
[2022-08-10] MEDS ORDERED: SIME80TA41 PO (18:46)
[2022-08-10] MEDS ORDERED: PIOG15TA84 PO (18:46)
[2022-08-10] MEDS ORDERED: GABA300C PO (18:46)
[2022-08-10] MEDS ORDERED: FAMO-92 PO (18:46)
[2022-08-10] MEDS ORDERED: ERGO-30 PO (18:46)
--- NOTE | 2022-08-10 19:17 | NUR ---
patient awaiting for admit MS bed report endorsed to incoming RN May all questions answered.
--- NOTE | 2022-08-10 20:00 | NUR ---
Patient will be admitted to care of Dr. Haas. Admited to Med/Surg. Will go to room 121B. Belongings list completed. Report to MELIA Mckeon.
--- NOTE | 2022-08-10 20:15 | NUR ---
PT WAS TRANSPORTED FROM ER VIA GURNEY. PT IS AAOX4 DANISH SPEAKER. PT ON RA SATING 97%. NOT IN ANY DISTRESS. PT IS AMBULATORY WITH ASSIST. PT HAS LEFT FOREARM 20 GAUGE RUNNING D5 NS 125. PLAN OF CARE DISCUSSED. WILL CONTINUE TO MONITOR THE PT.
[2022-08-10 20:20] VITALS: BP 143/59
[2022-08-10] MEDS ORDERED: DOCUSATE SODIUM 100 MG GELCAP PO PRN (21:05)
[2022-08-10] MEDS ORDERED: ZOLPIDEM 5 MG TAB PO PRN (21:05)
[2022-08-10] MEDS ORDERED: POTASSIUM CHLORIDE 40 MEQ, LIDOCAINE MPF 1% 25 MG in NACL 0.9% 250 ML IV PRN (21:05)
[2022-08-10] MEDS ORDERED: guaiFENesin DM 200/20 MG-10 ML 10 ML UDC PO PRN (21:05)
[2022-08-10] MEDS ORDERED: HYDROcodone/APAP 7.5/325 MG 1 TAB PO PRN (21:05)
[2022-08-10] MEDS: DEXT 5% /NACL 0.9% 1,000 ML IV SCH (21:25)
[2022-08-10 21:30] LABS: PROTHROMBIN TIME 10.5 secs (10.8-13.4)
[2022-08-10 21:37] LABS: CHOL/HDL RATIO 4.4 (1-4.5); FREE T4 (FREE THYROXINE) 0.45 ng/dL (0.76-1.46); MAGNESIUM 1.9 mg/dL (1.8-2.4); PHOSPHORUS 2.3 mg/dL (2.5-4.9); THYROID STIMULATING HORMONE 0.23 uIU/mL (0.34-3.74)
--- NOTE | 2022-08-11 | NUR ---
OBSERVED PT. PT IS SLEEPING COMFORTABLY IN BED. NOT IN ANY DISTRESS. BREATHING EVEN AND UNLABORED. SAFETY PRECAUTIONS TAKEN. WILL CONTINUE TO MONITOR THE PT.
[2022-08-11 04:55] LABS: CARBON DIOXIDE 26.4 mmol/L (21-32); CHLORIDE 97 mmol/L (98-107); CREATININE 0.7 mg/dL (0.6-1.3); GLUCOSE 188 mg/dL (74-106); POTASSIUM 3.4 mmol/L (3.5-5.1); SODIUM SERUM 128 mmol/L (136-145); UREA NITROGEN, BLOOD 4 mg/dL (7-18)
[2022-08-11 04:57] LABS: BASOPHILS # (AUTO) 0.1 K/uL (0.00-0.22); BASOPHILS % (AUTO) 1.4 % (0.0-2.0); EOSINOPHILS # (AUTO) 0.2 K/uL (0-0.4); EOSINOPHILS % (AUTO) 3.5 % (0.0-4.0); HEMATOCRIT 36.8 % (36-48); HEMOGLOBIN 12.9 g/dL (12.0-16.0); LYMPHOCYTES # (AUTO) 2.4 K/uL (2.5-16.5); LYMPHOCYTES % (AUTO) 44.4 % (20.5-51.1); MEAN CORPUSCULAR HEMOGLOBIN 32 pg (27-31); MEAN CORPUSCULAR HGB CONC 35 g/dL (33-37); MEAN CORPUSCULAR VOLUME 90.6 fL (80-94); MONOCYTES # (AUTO) 0.7 K/uL (0.8-1.0); MONOCYTES % (AUTO) 13.2 % (1.7-9.3); NEUTROPHILS % (AUTO) 37.5 % (42.2-75.2); PLATELET COUNT (AUTO) 288 K/uL (140-450); RED BLOOD CELL COUNT(AUTO) 4.06 MIL/uL (4.20-5.40); RED CELL DISTRIBUTION WIDTH 12.9 % (11.6-13.7); WHITE BLOOD COUNT (AUTO) 5.3 K/uL (4.8-10.8)
--- NOTE | 2022-08-11 05:20 | NUR ---
C.DIFF SPECIMEN SENT TO THE LAB.
--- NOTE | 2022-08-11 07:10 | NUR ---
ENDORSED PT TO DAY SHIFT NURSE FOR CONTINUITY OF CARE. PT IS STABLE.
[2022-08-11 08:00] VITALS: BP 163/72
--- NOTE | 2022-08-11 09:03 | NUR ---
PATIENT HAS BEEN SCREENED AND CATEGORIZED HIGH NUTRITION RISK. PATIENT WILL BE SEEN WITHIN 1-2 DAYS OF ADMISSION. 08/11/22-08/12/22 [facility] REFERRAL RECEIVED FOR NAUSEA/VOMITING/DIARRHEA FOR > 3 DAYS 08/11/[address]
[2022-08-11] MEDS: ONDANSETRON 4 MG/2 ML VIAL IM/IVP PRN (09:45)
[2022-08-11] MEDS: PANTOPRAZOLE 40 MG TABEC PO SCH (09:47)
[2022-08-11] MEDS: DEXT 5% /NACL 0.9% 1,000 ML IV SCH ×2 (09:51→22:16)
--- NOTE | 2022-08-11 11:16 | NUR ---
DC PLANNIN YRS OLD FEMALE PATIENT WAS ADMITTED FROM HOME WITH A DX OF N/V DIARRHEA, ABDOMINAL PAIN, UTI HYPONATREMIA AND HYPOKALEMIA. PATIENT HAS A HX OF HTN, DM, HYPOTHYROIDISM AND COLITIS. CXR SHOWED ATELECTASIS. CT ABD SHOWED MINIMAL RIGHT PELVIECTASIS. RAPID COVID TEST NEGATIVE. BLOOD AND URINE CULTURE PENDING. STOOL SENT FOR C-DIFF. ADMINISTERED IVF, IV ABX ROCEPHIN . DC PLAN TO GO HOME WHEN STABLE CM TO FOLLOW.
--- NOTE | 2022-08-11 14:48 | NUR ---
08/11/22 RD INITIAL ASSESSMENT COMPLETED PLEASE REFER TO NUTRITION ASSESSMENT UNDER CARE ACTIVITY FOR ESTIMATED NUTRITIONAL NEEDS. 1. CONTINUE CLEAR LIQUID DIET AND ENSURE CLEAR BID TOLERATED. 2. MONITOR GI, PO INTAKE, NUTRITION RELATED LAB VALUES. 3. RD TO FOLLOW-UP 2-3 DAYS, HIGH RISK MARLENE PROCTOR RD
[2022-08-11] MEDS: ACETAMINOPHEN 325 MG TAB PO PRN (14:52)
--- NOTE | 2022-08-11 14:56 | NUR ---
Two, 325 mg tylenol tablets given for pain, one dropped, additional tylenol from omnicell for total dose 650 mg.
[2022-08-11 16:00] VITALS: BP 150/55
--- NOTE | 2022-08-11 19:30 | NUR ---
RECEIVED REPORT FROM DAY SHIFT RN FOR CONTINUITY OF CARE. PT IS AWAKE WITH FAMILY BY BEDSIDE. AAOX4 MACEDONIAN SPEAKER. PT IS AMBULATORY. GAIT STEADY. POC DISCUSSED. WILL CONTINUE TO MONITOR THE PT.
[2022-08-11 20:00] VITALS: BP 157/66
[2022-08-12 05:31] LABS: ANION GAP 9.4 (8-16); CARBON DIOXIDE 25.1 mmol/L (21-32); CHLORIDE 102 mmol/L (98-107); CREATININE 0.7 mg/dL (0.6-1.3); GLUCOSE 140 mg/dL (74-106); POTASSIUM 3.5 mmol/L (3.5-5.1); SODIUM SERUM 133 mmol/L (136-145)
--- NOTE | 2022-08-12 05:37 | NUR ---
OBSERVED PT. PT IS RESTING IN BED. NOT IN ANY DISTRESS. BED AT THE LOWEST POSITION. PT HAS NOT BEEN ABLE TO HAVE BM THIS SHIFT.
[2022-08-12 05:40] LABS: BASOPHILS # (AUTO) 0.1 K/uL (0.00-0.22); BASOPHILS % (AUTO) 0.9 % (0.0-2.0); EOSINOPHILS # (AUTO) 0.2 K/uL (0-0.4); EOSINOPHILS % (AUTO) 3.6 % (0.0-4.0); HEMATOCRIT 38.5 % (36-48); HEMOGLOBIN 13.2 g/dL (12.0-16.0); LYMPHOCYTES # (AUTO) 2.9 K/uL (2.5-16.5); LYMPHOCYTES % (AUTO) 49.8 % (20.5-51.1); MEAN CORPUSCULAR HEMOGLOBIN 32 pg (27-31); MEAN CORPUSCULAR HGB CONC 34 g/dL (33-37); MEAN CORPUSCULAR VOLUME 92.3 fL (80-94); MONOCYTES # (AUTO) 0.9 K/uL (0.8-1.0); MONOCYTES % (AUTO) 15.5 % (1.7-9.3); NEUTROPHILS # (AUTO) 1.7 K/uL (1.8-7.7); NEUTROPHILS % (AUTO) 30.2 % (42.2-75.2); PLATELET COUNT (AUTO) 309 K/uL (140-450); RED BLOOD CELL COUNT(AUTO) 4.18 MIL/uL (4.20-5.40); WHITE BLOOD COUNT (AUTO) 5.8 K/uL (4.8-10.8)
[2022-08-12 05:44] LABS: UREA NITROGEN, BLOOD 2 mg/dL (7-18)
[2022-08-12] MEDS: ACETAMINOPHEN 325 MG TAB PO PRN (06:33)
--- NOTE | 2022-08-12 07:15 | NUR ---
ENDORSED PT TO DAY SHIFT NURSE FOR CONTINUITY OF CARE. PT IS STABLE.
--- NOTE | 2022-08-12 07:15 | NUR ---
ASSUMED CONTINUITY OF CARE. INITIAL ASSESSMENT DONE. KEEP COMFORTABLE ON BED. EXPLAINED USE OF CALL LIGHT/BED/TV/BATHROOM. VERBALIZED UNDERSTANDING. FALL PRECAUTION APPLIED. CALL LIGHT WITHIN REACH.
[2022-08-12 08:00] VITALS: BP 141/71
--- NOTE | 2022-08-12 08:00 | NUR ---
Patient's Plan of Care was discussed and reviewed with CNC SUPERVISOR: ROMERO
[2022-08-12] MEDS: PANTOPRAZOLE 40 MG TABEC PO SCH (08:26)
[2022-08-12] MEDS: ONDANSETRON 4 MG/2 ML VIAL IM/IVP PRN (08:53)
[2022-08-12] MEDS: DEXT 5% /NACL 0.9% 1,000 ML IV SCH ×2 (12:31→23:05)
[2022-08-12 16:00] VITALS: BP 165/65
--- NOTE | 2022-08-12 16:37 | NUR ---
PAGED DR. JEAN REGARDING PT. HIGH BP 165/65. DR. JEAN PAGED BACK ORDERED HYDRALAZINE 5 MG IVP PRN FOR SBP >170.
[2022-08-12] MEDS ORDERED: hydrALAZINE 20 MG/ML VIAL IVP PRN (16:40)
--- NOTE | 2022-08-12 19:02 | NUR ---
REPORT GIVEN TO BENITO -RN FOR CONTINUITY OF CARE. IN STABLE CONDITION.
--- NOTE | 2022-08-12 19:30 | NUR ---
RECEIVED REPORT FROM DAY SHIFT RN FOR CONTINUITY OF CARE. PT IS AWAKE WITH FAMILY BY BEDSIDE. AAOX4 MONGOLIAN SPEAKER. PT IS AMBULATORY. GAIT STEADY. POC DISCUSSED. WILL CONTINUE TO MONITOR THE PT.
[2022-08-12 20:00] VITALS: BP 145/76
--- NOTE | 2022-08-13 | NUR ---
OBSERVED PT. PT IS SLEEPING. NOT IN ANY DISTRESS. VISIBLE RISE AND CHEST FALL. IVF RUNNING PER MD ORDER. SAFETY PRECAUTIONS TAKEN. WILL CONTINUE TO MONITOR THE PT.
[2022-08-13 04:00] VITALS: BP 144/69
--- NOTE | 2022-08-13 04:00 | NUR ---
VITAL SIGNS TAKEN AND STABLE. PT ASKED FOR WATER AND PROVIDED. NO OTHER COMPLAINS. WILL CONTINUE TO MONITOR THE PT.
[2022-08-13 06:23] LABS: BASOPHILS # (AUTO) 0.1 K/uL (0.00-0.22); BASOPHILS % (AUTO) 1.1 % (0.0-2.0); EOSINOPHILS # (AUTO) 0.3 K/uL (0-0.4); EOSINOPHILS % (AUTO) 5.5 % (0.0-4.0); HEMATOCRIT 37.1 % (36-48); HEMOGLOBIN 12.8 g/dL (12.0-16.0); LYMPHOCYTES # (AUTO) 3.2 K/uL (2.5-16.5); LYMPHOCYTES % (AUTO) 51.6 % (20.5-51.1); MEAN CORPUSCULAR HEMOGLOBIN 32 pg (27-31); MEAN CORPUSCULAR HGB CONC 35 g/dL (33-37); MEAN CORPUSCULAR VOLUME 91.4 fL (80-94); MONOCYTES # (AUTO) 0.7 K/uL (0.8-1.0); MONOCYTES % (AUTO) 11.4 % (1.7-9.3); NEUTROPHILS # (AUTO) 1.9 K/uL (1.8-7.7); NEUTROPHILS % (AUTO) 30.4 % (42.2-75.2); PLATELET COUNT (AUTO) 313 K/uL (140-450); RED BLOOD CELL COUNT(AUTO) 4.06 MIL/uL (4.20-5.40); RED CELL DISTRIBUTION WIDTH 13.1 % (11.6-13.7); WHITE BLOOD COUNT (AUTO) 6.1 K/uL (4.8-10.8)
[2022-08-13 06:31] LABS: ANION GAP 10.4 (8-16); CARBON DIOXIDE 25.8 mmol/L (21-32); CHLORIDE 100 mmol/L (98-107); CREATININE 0.8 mg/dL (0.6-1.3); GLUCOSE 157 mg/dL (74-106); POTASSIUM 3.2 mmol/L (3.5-5.1); SODIUM SERUM 133 mmol/L (136-145); UREA NITROGEN, BLOOD 1 mg/dL (7-18)
[2022-08-13 06:41] LABS: MAGNESIUM 1.7 mg/dL (1.8-2.4)
--- NOTE | 2022-08-13 07:05 | NUR ---
ASSUMED CONTINUITY OF CARE. INITIAL ASSESSMENT DONE. KEEP COMFORTABLE ON BED. CALL LIGHT WITHIN REACH.
--- NOTE | 2022-08-13 07:05 | NUR ---
ENDORSED PT TO DAY SHIFT NURSE FOR CONTINUITY OF CARE. PT IS STABLE.
[2022-08-13] MEDS: ACETAMINOPHEN 325 MG TAB PO PRN (07:29)
--- NOTE | 2022-08-13 08:00 | NUR ---
Patient's Plan of Care was discussed and reviewed with ASPHALT MIXING MACHINE OPERATOR:
[2022-08-13] MEDS ORDERED: MAGNESIUM OXIDE 400 MG TAB PO ONE (08:20)
[2022-08-13] MEDS: PANTOPRAZOLE 40 MG TABEC PO SCH (08:52)
[2022-08-13 09:47] VITALS: BP 159/58
[2022-08-13] MEDS ORDERED: POTASSIUM CHLORIDE 10 MEQ TABER PO ONE (11:00)
--- NOTE | 2022-08-13 11:20 | NUR ---
WENT TO BATHROOM WITHOUT ASSISTANCE. TOLERATED WELL. NO C/O PAIN.
[2022-08-13] MEDS ORDERED: DEXTROSE 50% 50 ML SYR IVP PRN (14:10)
[2022-08-13] MEDS ORDERED: INSULIN LISPRO SLIDING SCALE 100 UNITS/ML VIAL SUBQ PRN (14:10)
--- NOTE | 2022-08-13 14:15 | NUR ---
SLEEPING WELL. NO DISCOMFORT NOTED. CONTINUE TO MONITOR.
[2022-08-13 16:00] VITALS: BP 163/71
[2022-08-13] MEDS: BLOOD GLUCOSE MONITORING 1 DEV DEV FS SCH ×2 (16:15→21:27)
--- NOTE | 2022-08-13 19:22 | NUR ---
RECEIVED PT AAOX4 , NOT IN DISTRESS , DENIES PAIN , NO COMPLAIN MADE . ON SL - INTACT AND PATENT . WILL CONT. TO MONITOR . CALL LIGHT [id number] REACH . ENSURE SAFETY
--- NOTE | 2022-08-13 19:22 | NUR ---
REPORT GIVEN TO MARTIN BURNETT IN STABLE CONDITION.
--- NOTE | 2022-08-13 19:49 | NUR ---
P.T. NOTES P.T. EVAL COMPLETED; REFER TO EVAL FOR DETAILS.
[2022-08-13 20:00] VITALS: BP 135/75
[2022-08-14] VITALS: BP 135/90
--- NOTE | 2022-08-14 | NUR ---
ROUNDS , NO S/SX OF ACUTE DISTRESS NOTED , WILL CONT. TO MONITOR .
--- NOTE | 2022-08-14 04:00 | NUR ---
ROUNDS , SLEEPING BUT EASILY AROUSABLE , WILL CONT. TO MONITOR .
[2022-08-14 05:49] LABS: BASOPHILS # (AUTO) 0.1 K/uL (0.00-0.22); EOSINOPHILS # (AUTO) 0.4 K/uL (0-0.4); EOSINOPHILS % (AUTO) 5.3 % (0.0-4.0); HEMATOCRIT 37.5 % (36-48); HEMOGLOBIN 13.2 g/dL (12.0-16.0); LYMPHOCYTES # (AUTO) 3.6 K/uL (2.5-16.5); LYMPHOCYTES % (AUTO) 53.9 % (20.5-51.1); MEAN CORPUSCULAR HEMOGLOBIN 32 pg (27-31); MEAN CORPUSCULAR HGB CONC 35 g/dL (33-37); MEAN CORPUSCULAR VOLUME 91.2 fL (80-94); MONOCYTES # (AUTO) 0.7 K/uL (0.8-1.0); NEUTROPHILS % (AUTO) 29.8 % (42.2-75.2); PLATELET COUNT (AUTO) 318 K/uL (140-450); RED BLOOD CELL COUNT(AUTO) 4.11 MIL/uL (4.20-5.40); RED CELL DISTRIBUTION WIDTH 13.1 % (11.6-13.7); WHITE BLOOD COUNT (AUTO) 6.7 K/uL (4.8-10.8)
[2022-08-14 05:52] LABS: MAGNESIUM 1.8 mg/dL (1.8-2.4); PHOSPHORUS 2.6 mg/dL (2.5-4.9)
[2022-08-14 05:58] LABS: ANION GAP 9.9 (8-16); CARBON DIOXIDE 26.5 mmol/L (21-32); CHLORIDE 97 mmol/L (98-107); CREATININE 0.7 mg/dL (0.6-1.3); GLUCOSE 147 mg/dL (74-106); POTASSIUM 3.4 mmol/L (3.5-5.1); SODIUM SERUM 130 mmol/L (136-145); UREA NITROGEN, BLOOD 9 mg/dL (7-18)
[2022-08-14] MEDS ORDERED: LEVOTHYROXINE 0.05 MG TAB PO SCH (06:30)
--- NOTE | 2022-08-14 07:28 | NUR ---
RECEIVED REPORT FROM THE RIG MANAGER NURSE FOR CONTINUITY OF CARE. PT IS AWAKE, ALERT AND STABLE. WILL CONTINUE TO MONITOR.
[2022-08-14] MEDS: BLOOD GLUCOSE MONITORING 1 DEV DEV FS SCH ×2 (07:35→11:36)
--- NOTE | 2022-08-14 07:40 | NUR ---
ENDORSED FOR CONT . OF CARE , AWAKE .
[2022-08-14 08:00] VITALS: BP 120/63
[2022-08-14] MEDS: PANTOPRAZOLE 40 MG TABEC PO SCH (08:52)
[2022-08-14] MEDS ORDERED: ATORVASTATIN 20 MG TAB PO SCH (09:00)
[2022-08-14] MEDS ORDERED: amLODIPine 5 MG TAB PO SCH (09:00)
[2022-08-14] MEDS ORDERED: GABAPENTIN 300 MG CAP PO SCH (09:00)
[2022-08-14] MEDS ORDERED: ASPIRIN 81 MG TAB.CHEW PO SCH (09:00)
[2022-08-14] MEDS ORDERED: AMLO-3 PO (13:09)
[2022-08-14 13:49] VITALS: BP 120/63
--- NOTE | 2022-08-14 15:58 | NUR ---
08/14/22 RD FOLLOW UP COMPLETED PLEASE REFER TO NUTRITION ASSESSMENT UNDER CARE ACTIVITY FOR ESTIMATED NUTRITIONAL NEEDS. 1. CONTINUE CCHO 60GM DIET TOLERATED 2. MONITOR GI SYMPTOMS -RECOMMEND BANATROL TID FOR DIARRHEA 3. RD TO FOLLOW-UP 3-5 DAYS, MODERATE RISK MARLENE PROCTOR, RD
== END 2022-08-14 17:44 | disposition home or self-care (01) | DRG 249 ==
LOC: MED 16:18 → MTU 18:27
PROVIDERS: ADMIT Family Medicine; ATTEND Family Medicine
DX: K52.9 Noninfective gastroenteritis and colitis, unspecified (principal); G93.41 Metabolic encephalopathy; E83.39 Other disorders of phosphorus metabolism; E83.51 Hypocalcemia; E87.6 Hypokalemia; N39.0 Urinary tract infection, site not specified; E87.8 Other disorders of electrolyte and fluid balance, not elsewhere classified; E03.9 Hypothyroidism, unspecified; E11.9 Type 2 diabetes mellitus without complications; E87.1 Hypo-osmolality and hyponatremia; I10 Essential (primary) hypertension; Z20.822 Contact with and (suspected) exposure to COVID-19; Z79.1 Long term (current) use of non-steroidal anti-inflammatories (NSAID); Z79.899 Other long term (current) drug therapy
CPT/HCPCS: 36415; 71045; 76536; 80048; 80053; 81001; 82150; 82948; 83036; 83605; 83690; 83735; 83880; 84100; 84436; 84439; 84443; 84479; 84484; 85025; 85610; 85730; 87040; 87070; 87081; 87086; 93005; 96365; 97116; 97163-GP; 99285; J0696; J2001; J2405; J3480; J7030; J7060; Q0092

== ENCOUNTER 2022-08-22 15:47 | Emergency (ER) | payer MEDICAID ==
[~2022-08-22] VITALS: Ht 142.2 cm; Wt 59.9 kg
[~2022-08-22 15:47] MED LIST changes: +AMLO-3 PO; +ATOR10TA PO; +ERGO-30 PO; +FAMO-92 PO; +GABA300C PO; +GLIP5TER PO; +IBUP-2213 PO; +PIOG15TA84 PO; +SIME80TA41 PO; +[UNRECOGNIZED DRUG - CODE] PO
[2022-08-22 17:17] VITALS: BP 145/50
--- NOTE | 2022-08-22 18:05 | NUR ---
PT. AMB. TO BED 8. NO ACUTE DISTRESS
[2022-08-22 18:11] LABS: BASOPHILS # (AUTO) 0.1 K/uL (0.00-0.22); BASOPHILS % (AUTO) 1.1 % (0.0-2.0); EOSINOPHILS # (AUTO) 0.2 K/uL (0-0.4); EOSINOPHILS % (AUTO) 2.9 % (0.0-4.0); HEMATOCRIT 39.5 % (36-48); HEMOGLOBIN 13.4 g/dL (12.0-16.0); LYMPHOCYTES # (AUTO) 4.3 K/uL (2.5-16.5); LYMPHOCYTES % (AUTO) 53.3 % (20.5-51.1); MEAN CORPUSCULAR HEMOGLOBIN 32 pg (27-31); MEAN CORPUSCULAR HGB CONC 34 g/dL (33-37); MEAN CORPUSCULAR VOLUME 93.8 fL (80-94); MONOCYTES # (AUTO) 0.4 K/uL (0.8-1.0); MONOCYTES % (AUTO) 4.8 % (1.7-9.3); NEUTROPHILS % (AUTO) 37.9 % (42.2-75.2); PLATELET COUNT (AUTO) 306 K/uL (140-450); RED BLOOD CELL COUNT(AUTO) 4.21 MIL/uL (4.20-5.40); RED CELL DISTRIBUTION WIDTH 13.6 % (11.6-13.7)
[2022-08-22 18:27] LABS: ALBUMIN 3.7 g/dL (3.4-5.0); ANION GAP 12.3 (8-16); ASPARTATE AMINOTRANSFERASE 19 U/L (15-37); CARBON DIOXIDE 26.4 mmol/L (21-32); CHLORIDE 101 mmol/L (98-107); CREATININE 1.1 mg/dL (0.6-1.3); GLUCOSE 148 mg/dL (74-106); LIPASE 237 U/L (73-393); MAGNESIUM 2.2 mg/dL (1.8-2.4); PHOSPHORUS 4.1 mg/dL (2.5-4.9); POTASSIUM 3.7 mmol/L (3.5-5.1); SODIUM SERUM 136 mmol/L (136-145); TOTAL BILIRUBIN 0.2 mg/dL (0.0-1.0); UREA NITROGEN, BLOOD 25 mg/dL (7-18)
--- NOTE | 2022-08-22 18:33 | NUR ---
PT C/O DIARRHEA, NAUSEA, WEAKNESS, INTERMITTENT ABD PAIN X 6DAYS. PT STATES SHE WAS ADMITTED AND DISCHARGED FROM [facility] Sunday08/14/22 FOR SAME SYMPTOMS. NAD. HX: OSTEOPORISIS, HTN, ARTHRITIS, DM, CHOLESTEROL MEDS: METMORPHINE, CALCIUM
[2022-08-22 19:05] LABS: BILIRUBIN,URINE NEGATIVE (NEGATIVE); BLOOD, URINE 1+ (NEGATIVE); COLOR,URINE YELLOW (YELLOW); LEUKOCYTE ESTERASE ,URINE TRACE (NEGATIVE); NITRITE, URINE NEGATIVE (NEGATIVE); UGLUCOSE NEGATIVE (NEGATIVE)
[2022-08-22 20:23] LABS: APPEARANCE,URINE HAZY (CLEAR)
[2022-08-22 20:27] LABS: RBC,URINE 0-5 /HPF (0-5)
[2022-08-22] MEDS ORDERED: LOPE-231 PO (20:35)
[2022-08-22] MEDS ORDERED: LOPERAMIDE 2 MG CAP PO ONE (20:40)
[2022-08-22 20:46] VITALS: BP 144/68
== END 2022-08-22 20:46 | disposition home or self-care (01) ==
LOC: MED 15:47
DX: R19.7 Diarrhea, unspecified (principal); R10.9 Unspecified abdominal pain; R50.9 Fever, unspecified; E11.9 Type 2 diabetes mellitus without complications; I10 Essential (primary) hypertension; E03.9 Hypothyroidism, unspecified; Z79.4 Long term (current) use of insulin; Z79.899 Other long term (current) drug therapy
CPT/HCPCS: 36415; 80053; 81001; 83690; 83735; 84100; 85025; 99283

== ENCOUNTER 2022-09-23 08:04 | Emergency (ER) | payer MEDICAID ==
[~2022-09-23] VITALS: Ht 139.7 cm; Wt 60.8 kg
[~2022-09-23 08:04] MED LIST changes: +LOPE-231 PO
[2022-09-23 08:20] VITALS: BP 148/78
--- NOTE | 2022-09-23 08:25 | NUR ---
pt ambulatory to bed 09 accompanied by daughter
[2022-09-23] MEDS ORDERED: NACL 0.9% 1,000 ML IV ONE (08:40)
[2022-09-23] MEDS ORDERED: ONDANSETRON 4 MG/2 ML VIAL IVP ONE (08:40)
[2022-09-23] MEDS ORDERED: MORPHINE SULFATE 4 MG/ML SYR IVP ONE (08:40)
[2022-09-23 09:46] LABS: BASOPHILS # (AUTO) 0.1 K/uL (0.00-0.22); EOSINOPHILS # (AUTO) 0.1 K/uL (0-0.4); EOSINOPHILS % (AUTO) 2.1 % (0.0-4.0); HEMATOCRIT 38.5 % (36-48); HEMOGLOBIN 13.5 g/dL (12.0-16.0); LYMPHOCYTES # (AUTO) 2.2 K/uL (2.5-16.5); LYMPHOCYTES % (AUTO) 40.8 % (20.5-51.1); MEAN CORPUSCULAR HEMOGLOBIN 32 pg (27-31); MEAN CORPUSCULAR HGB CONC 35 g/dL (33-37); MONOCYTES # (AUTO) 0.4 K/uL (0.8-1.0); MONOCYTES % (AUTO) 8.2 % (1.7-9.3); NEUTROPHILS # (AUTO) 2.6 K/uL (1.8-7.7); NEUTROPHILS % (AUTO) 47.9 % (42.2-75.2); PLATELET COUNT (AUTO) 315 K/uL (140-450); RED BLOOD CELL COUNT(AUTO) 4.18 MIL/uL (4.20-5.40); RED CELL DISTRIBUTION WIDTH 13.2 % (11.6-13.7); WHITE BLOOD COUNT (AUTO) 5.4 K/uL (4.8-10.8)
--- NOTE | 2022-09-23 09:54 | NUR ---
Pt bib daughter for abd pain and general weakness x 2 weeks. Pain is upper abd, non raditating, constant, 6/10, ache. Pt has to urinate frequently but states this is normal for her. Pt is a/o x 4, vss, no ss of acute distress, breathing equal and unlabored, speech clear. IV started/labs drawn by assist RN. Daughter at bedside.
[2022-09-23 10:00] LABS: APPEARANCE,URINE CLEAR (CLEAR); BILIRUBIN,URINE NEGATIVE (NEGATIVE); BLOOD, URINE TRACE-I (NEGATIVE); COLOR,URINE YELLOW (YELLOW); LEUKOCYTE ESTERASE ,URINE NEGATIVE (NEGATIVE); NITRITE, URINE NEGATIVE (NEGATIVE); UGLUCOSE 2+ (NEGATIVE)
[2022-09-23 10:12] LABS: ALBUMIN 3.8 g/dL (3.4-5.0); ANION GAP 11.4 (8-16); ASPARTATE AMINOTRANSFERASE 25 U/L (15-37); CHLORIDE 95 mmol/L (98-107); CREATININE 0.8 mg/dL (0.6-1.3); GLUCOSE 221 mg/dL (74-106); LIPASE 115 U/L (73-393); MAGNESIUM 2.1 mg/dL (1.8-2.4); PHOSPHORUS 2.4 mg/dL (2.5-4.9); POTASSIUM 3.4 mmol/L (3.5-5.1); SODIUM SERUM 130 mmol/L (136-145); TOTAL BILIRUBIN 0.4 mg/dL (0.0-1.0); UREA NITROGEN, BLOOD 10 mg/dL (7-18)
[2022-09-23 10:36] LABS: RBC,URINE 0-5 /HPF (0-5)
[2022-09-23 10:37] LABS: CALCIUM OXALATE CRYSTALS,UR None Seen /HPF (None Seen); COARSE GRANULAR CASTS,URINE None Seen /LPF (None Seen); FINE GRANULAR CASTS,URINE None Seen /LPF (None Seen); HYALINE CASTS, URINE None Seen /LPF (None Seen); OTHER CASTS, URINE None Seen /LPF (None Seen); OTHER CRYSTALS,URINE None Seen /HPF (None Seen); RED BLOOD CELL CASTS,URINE None Seen /LPF (None Seen); TRICHOMONAS,URINE None Seen /HPF (None Seen); TRIPLE PHOSPHATE CRYSTAL,UR None Seen /HPF (None Seen); URIC ACID CRYSTALS,URINE None Seen /HPF (None Seen); URINE AMORPHOUS URATE None Seen /HPF (None Seen); WAXY CASTS,URINE None Seen /LPF (None Seen); YEAST,URINE None Seen /HPF (None Seen)
[2022-09-23 11:34] LABS: FREE T4 (FREE THYROXINE) 0.32 ng/dL (0.76-1.46); THYROID STIMULATING HORMONE 0.63 uIU/mL (0.34-3.74)
--- NOTE | 2022-09-23 11:53 | NUR ---
CT stated they would not take pt with iv placed in hand. 20g in R ac placed as requested.
--- NOTE | 2022-09-23 12:37 | NUR ---
Pt to and from ct without incident. Back on monitor. Daughter at bedside.
[2022-09-23] MEDS ORDERED: POTASSIUM CHLORIDE 10 MEQ TABER PO ONE (13:10)
[2022-09-23] MEDS ORDERED: SODIUM PHOS / POTASSIUM PHOS 1 PKT PDR PO ONE (13:10)
[2022-09-23 13:51] VITALS: BP 140/81
--- NOTE | 2022-09-23 13:53 | NUR ---
spoke with pt and then gave order for dc, network architect manager used. ACI given and reviewed with pt and daughter, both verbalized understanding and will follow up with primary. Pt passed po challenge without issue. IV removed and inspected for patency. Pt is a/o x 4, vss, no ss of acute distress, breathing equal and unlabored, speech clear. Pt left with daughter, gait normal for pt.
== END 2022-09-23 13:40 | disposition home or self-care (01) ==
LOC: MED 08:04
DX: R10.13 Epigastric pain (principal); R10.33 Periumbilical pain; E87.6 Hypokalemia; E83.39 Other disorders of phosphorus metabolism; R11.2 Nausea with vomiting, unspecified; E11.9 Type 2 diabetes mellitus without complications; K21.9 Gastro-esophageal reflux disease without esophagitis; I10 Essential (primary) hypertension; E03.9 Hypothyroidism, unspecified; Z79.899 Other long term (current) drug therapy; Z98.890 Other specified postprocedural states; Z79.84 Long term (current) use of oral hypoglycemic drugs
CPT/HCPCS: 36415; 71045; 74177; 80053; 81001; 83605; 83690; 83735; 84100; 84439; 84443; 84484; 85025; 87040; 93005; 96361; 96374; 96375; 99285; J2270; J2405; J7030; Q9967

== ENCOUNTER 2022-10-20 13:20 | Observation (INO) | payer MEDICAID, OTHER ==
[~2022-10-20] VITALS: Ht 157.5 cm; Wt 79.4 kg
[2022-10-20 13:50] VITALS: BP 161/85; PULSE 78; RESP 17; TEMP 97.4; O2SAT 98
[2022-10-20] MEDS ORDERED: NACL 0.9% 1,000 ML IV SCH (14:05)
[2022-10-20] MEDS ORDERED: cefTRIAXone 1,000 MG in DEXT 5% MINI-BAG PLUS 50 ML IV ONE (14:05)
[2022-10-20 14:28] LABS: BASOPHILS # (AUTO) 0.1 K/uL (0.00-0.22); BASOPHILS % (AUTO) 1.2 % (0.0-2.0); EOSINOPHILS # (AUTO) 0.2 K/uL (0-0.4); EOSINOPHILS % (AUTO) 4.7 % (0.0-4.0); HEMATOCRIT 38.7 % (36-48); HEMOGLOBIN 13.4 g/dL (12.0-16.0); LYMPHOCYTES # (AUTO) 3.1 K/uL (2.5-16.5); LYMPHOCYTES % (AUTO) 61.4 % (20.5-51.1); MEAN CORPUSCULAR HEMOGLOBIN 32 pg (27-31); MEAN CORPUSCULAR HGB CONC 35 g/dL (33-37); MEAN CORPUSCULAR VOLUME 92.4 fL (80-94); MONOCYTES # (AUTO) 0.4 K/uL (0.8-1.0); MONOCYTES % (AUTO) 7.3 % (1.7-9.3); NEUTROPHILS # (AUTO) 1.3 K/uL (1.8-7.7); NEUTROPHILS % (AUTO) 25.4 % (42.2-75.2); PLATELET COUNT (AUTO) 257 K/uL (140-450); RED BLOOD CELL COUNT(AUTO) 4.18 MIL/uL (4.20-5.40); RED CELL DISTRIBUTION WIDTH 13.5 % (11.6-13.7)
[2022-10-20] MEDS ORDERED: ONDANSETRON 4 MG/2 ML VIAL IVP ONE (14:35)
[2022-10-20] MEDS ORDERED: cefTRIAXone 1,000 MG VIAL ONE (14:45)
[2022-10-20 14:46] LABS: APPEARANCE,URINE CLEAR (CLEAR); BILIRUBIN,URINE NEGATIVE (NEGATIVE); BLOOD, URINE TRACE-I (NEGATIVE); COLOR,URINE YELLOW (YELLOW); LEUKOCYTE ESTERASE ,URINE NEGATIVE (NEGATIVE); NITRITE, URINE NEGATIVE (NEGATIVE); UGLUCOSE 3+ (NEGATIVE)
[2022-10-20 14:47] LABS: ALBUMIN 3.5 g/dL (3.4-5.0); ANION GAP 9.1 (8-16); ASPARTATE AMINOTRANSFERASE 29 U/L (15-37); CARBON DIOXIDE 28.2 mmol/L (21-32); CHLORIDE 96 mmol/L (98-107); CREATININE 1.3 mg/dL (0.6-1.3); GLUCOSE 257 mg/dL (74-106); POTASSIUM 3.3 mmol/L (3.5-5.1); SODIUM SERUM 130 mmol/L (136-145); TOTAL BILIRUBIN 0.4 mg/dL (0.0-1.0); UREA NITROGEN, BLOOD 9 mg/dL (7-18)
[2022-10-20 14:48] LABS: RBC,URINE 0-5 /HPF (0-5)
--- NOTE | 2022-10-20 15:41 | NUR ---
PT SLEEPING NO DISTRESS NOTED. VS STABLE. SISTER AT THE BS. IVF BOLUS INFUSING WELL. PT AWAITING UPDATE ON RESULTS.
[2022-10-20] MEDS ORDERED: MAG SULF 2000 MG/WATER PREMIX 50 ML IV PRN (16:50)
[2022-10-20] MEDS ORDERED: HYDROcodone/APAP 5/325 MG 1 TAB TAB PO PRN (16:50)
[2022-10-20] MEDS ORDERED: POTASSIUM CHLORIDE 10 MEQ TABER PO PRN (16:50)
[2022-10-20] MEDS ORDERED: ACETAMINOPHEN 325 MG TAB PO PRN (16:50)
[2022-10-20] MEDS ORDERED: ONDANSETRON 4 MG/2 ML VIAL IVP PRN (16:50)
[2022-10-20] MEDS ORDERED: MORPHINE SULFATE 4 MG/ML SYR IVP PRN (16:50)
[2022-10-20] MEDS ORDERED: MAGNESIUM OXIDE 400 MG TAB PO PRN (16:50)
[2022-10-20] MEDS: NACL 0.9% 1,000 ML IV SCH (19:19)
--- NOTE | 2022-10-20 19:37 | NUR ---
Pt report given to JAZMIN. Transfer of care at this time. PT IN STABLE CONDITION AT TIME OF ENDORSEMENT.
--- NOTE | 2022-10-20 19:46 | NUR ---
TRANSFER OF CARE FROM DAY SHIFT, REPORT RECEIEVED FROM MELIA VALENTIN. PATIENT IS PENDING TRANSFER TO [facility], RM 122B DTR IS AT BEDSIDE
--- NOTE | 2022-10-20 21:10 | NUR ---
HEPARIN NOT GIVEN DUE TO PATIENT NOT HAVING COAG LABS
--- NOTE | 2022-10-20 21:32 | NUR ---
Pt report given to EVELYN,IN MST. Transfer of care TO [facility], RM 122
[2022-10-20 23:00] VITALS: PULSE 77; RESP 18; O2SAT 95; O2SAT 98
--- NOTE | 2022-10-20 23:00 | NUR ---
ADMITTED A 77 Y/O FEMALE FROM ER VIA GURNEY AWAKE ALERT ORIENTED X4 GUYANESE SPEAKING. NO ACUTE DISTRESS. NO COMPLAINTS OF PAIN AT THIS TIME. CALL LIGHT WITHIN REACH. IV ACCESS TO RIGHT FOREARM INFUSING NS AT 80 MLS/HR. BED WHEELS LOCKED IN LOW POSITION. SAFETY MEASURES ARE IN PLACE.
[2022-10-20 23:13] VITALS: PULSE 71; RESP 18; O2SAT 98
[2022-10-21] MEDS ORDERED: DEXTROSE 50% 50 ML SYR IVP PRN (03:00)
[2022-10-21 04:00] VITALS: BP 119/50; PULSE 71; RESP 18; TEMP 97.4; O2SAT 98
[2022-10-21] MEDS: NACL 0.9% 1,000 ML IV SCH ×2 (05:20→11:03)
[2022-10-21] MEDS: BLOOD GLUCOSE MONITORING 1 DEV DEV FS SCH ×4 (06:46→21:59)
[2022-10-21 07:07] VITALS: O2SAT 98
--- NOTE | 2022-10-21 07:07 | NUR ---
ASSUMED CONTINUITY OF CARE. INITIAL ASSESSMENT DONE. KEEP COMFORTABLE ON BED. FALL PRECAUTION APPLIED. CALL LIGHT WITHIN REACH.
--- NOTE | 2022-10-21 07:08 | NUR ---
ROUNDED ON PT SHE WAS ASSISTED TO BED FROM RESTROOM. NO DISTRESS NOTED. PT KEPT SPO2 ABOVE 95% . CALL LIGHT WITH IN REACH. WILL CONTINUE TO MONITOR. PT IS NOW ON ROOM AIR SPO2 94%
--- NOTE | 2022-10-21 07:08 | NUR ---
REPORT GIVEN TO AM NURSE FOR CONTINUITY OF CARE. PATIENT STABLE.
[2022-10-21 08:00] VITALS: BP 124/51; PULSE 66; RESP 18; TEMP 97.1; O2SAT 100
[2022-10-21 08:23] LABS: BASOPHILS # (AUTO) 0.1 K/uL (0.00-0.22); EOSINOPHILS # (AUTO) 0.3 K/uL (0-0.4); HEMATOCRIT 38.8 % (36-48); HEMOGLOBIN 13.3 g/dL (12.0-16.0); LYMPHOCYTES # (AUTO) 3.3 K/uL (2.5-16.5); LYMPHOCYTES % (AUTO) 61.1 % (20.5-51.1); MEAN CORPUSCULAR HEMOGLOBIN 32 pg (27-31); MEAN CORPUSCULAR HGB CONC 34 g/dL (33-37); MEAN CORPUSCULAR VOLUME 93.1 fL (80-94); MONOCYTES # (AUTO) 0.4 K/uL (0.8-1.0); MONOCYTES % (AUTO) 7.7 % (1.7-9.3); NEUTROPHILS # (AUTO) 1.4 K/uL (1.8-7.7); NEUTROPHILS % (AUTO) 25.2 % (42.2-75.2); PLATELET COUNT (AUTO) 255 K/uL (140-450); RED BLOOD CELL COUNT(AUTO) 4.17 MIL/uL (4.20-5.40); RED CELL DISTRIBUTION WIDTH 13.1 % (11.6-13.7); WHITE BLOOD COUNT (AUTO) 5.4 K/uL (4.8-10.8)
[2022-10-21 08:41] LABS: CARBON DIOXIDE 27.7 mmol/L (21-32); CHLORIDE 99 mmol/L (98-107); GLUCOSE 122 mg/dL (74-106); POTASSIUM 3.7 mmol/L (3.5-5.1); SODIUM SERUM 132 mmol/L (136-145); UREA NITROGEN, BLOOD 7 mg/dL (7-18)
[2022-10-21] MEDS: DOCUSATE SODIUM 100 MG GELCAP PO SCH (08:58)
--- NOTE | 2022-10-21 11:02 | NUR ---
DR. MAYO SEEN PT..
--- NOTE | 2022-10-21 11:15 | NUR ---
WENT TO BATHROOM WITHOUT ASSISTANCE. TOLERATED WELL. NO C/O PAIN. NO SOB, NOTED. WILL MONITOR.
[2022-10-21 16:00] VITALS: BP 126/58; PULSE 78; RESP 16; TEMP 98.3; O2SAT 95
[2022-10-21] MEDS: INSULIN LISPRO SLIDING SCALE 100 UNITS/ML VIAL SUBQ PRN ×2 (16:15→22:01)
--- NOTE | 2022-10-21 19:06 | NUR ---
BEDSIDE REPORT GIVEN TO JF WELLER. IN STABLE CONDITION. IVF INFUSING WELL.
--- NOTE | 2022-10-21 19:07 | NUR ---
RECD. RESTING IN BED, AWAKE, A/OX3. ABLE TO VERBALIZED NEEDS. RESPIRATION EVEN AND UNLABORED. IV OF NS INFUSING AT 80 ML/HR, RIGHT HAND [id number]. AMBULATES WITH ASSISTANCE. FAMILY AT THE BEDSIDE ATTENDING TO PATIENT. DENIES PAIN 0/10.
[2022-10-21 20:00] VITALS: PULSE 80; RESP 18; O2SAT 93
--- NOTE | 2022-10-21 20:00 | NUR ---
Patient's Plan of Care was discussed and reviewed with PAYAL: JF
[2022-10-21 20:25] VITALS: O2SAT 97
--- NOTE | 2022-10-21 21:59 | NUR ---
RESTING IN BED, SNACK FOR THE NIGHT GIVEN. INSTRUCTED TO CALL NURSE WHEN GETTING OUT OF BED. AGREED.
--- NOTE | 2022-10-21 23:15 | NUR ---
AMBULATED TO THE BR TO VOID WITHOUT CALLING NURSE. ASSISTED BACK TO BED. SAFETY MAINTAINED. PUT BED ON ALARM.
--- NOTE | 2022-10-22 01:30 | NUR ---
BED ALARM, PT GETTING OUT OF BED. ASSISTED TO THE BR TO VOID. BACK TO SLEEP AFTER VOIDING.
--- NOTE | 2022-10-22 03:30 | NUR ---
SLEEPING COMFORTABLY IN BED, RESPIRATION EVEN AND UNLABORED.
[2022-10-22] MEDS: NACL 0.9% 1,000 ML IV SCH ×2 (03:49→06:20)
[2022-10-22 04:00] VITALS: BP 140/84; PULSE 73; RESP 18; TEMP 98.7; O2SAT 90
[2022-10-22] MEDS: BLOOD GLUCOSE MONITORING 1 DEV DEV FS SCH ×2 (06:25→11:28)
[2022-10-22] MEDS: INSULIN LISPRO SLIDING SCALE 100 UNITS/ML VIAL SUBQ PRN ×2 (06:28→11:29)
[2022-10-22 06:53] LABS: EOSINOPHILS # (AUTO) 0.2 K/uL (0-0.4); HEMATOCRIT 38.1 % (36-48); HEMOGLOBIN 13.3 g/dL (12.0-16.0); LYMPHOCYTES # (AUTO) 3.4 K/uL (2.5-16.5); MEAN CORPUSCULAR HEMOGLOBIN 32 pg (27-31); MEAN CORPUSCULAR HGB CONC 35 g/dL (33-37); MEAN CORPUSCULAR VOLUME 92.1 fL (80-94); MONOCYTES # (AUTO) 0.4 K/uL (0.8-1.0); MONOCYTES % (AUTO) 7.5 % (1.7-9.3); PLATELET COUNT (AUTO) 271 K/uL (140-450); RED BLOOD CELL COUNT(AUTO) 4.14 MIL/uL (4.20-5.40); RED CELL DISTRIBUTION WIDTH 13.2 % (11.6-13.7); WHITE BLOOD COUNT (AUTO) 5.1 K/uL (4.8-10.8)
[2022-10-22 07:06] LABS: ANION GAP 11.9 (8-16); CARBON DIOXIDE 26.8 mmol/L (21-32); CHLORIDE 100 mmol/L (98-107); CREATININE 0.9 mg/dL (0.6-1.3); GLUCOSE 141 mg/dL (74-106); POTASSIUM 3.7 mmol/L (3.5-5.1); SODIUM SERUM 135 mmol/L (136-145); UREA NITROGEN, BLOOD 8 mg/dL (7-18)
--- NOTE | 2022-10-22 07:10 | NUR ---
ASSUMED CONTINUITY OF CARE. INITIAL ASSESSMENT DONE. KEEP COMFORTABLE ON BED. FALL PRECAUTION APPLIED. EXPLAINED USE OF CALL LIGHT/BED/TV/BATHROOM. VERBALIZED UNDERSTANDING. CALL LIGHT WITHIN REACH.
--- NOTE | 2022-10-22 07:10 | NUR ---
ENDORSED PATIENT 122 B, TO ROMERO LIMA FOR CONTINUITY OF CARE. PATIENT IS STABLE.
[2022-10-22 07:22] LABS: EOSINOPHILS % (AUTO) 4.8 % (0.0-4.0); LYMPHOCYTES % (AUTO) 66.7 % (20.5-51.1)
[2022-10-22 08:00] VITALS: BP 144/72; PULSE 73; RESP 17; TEMP 98.4; O2SAT 98
[2022-10-22] MEDS: DOCUSATE SODIUM 100 MG GELCAP PO SCH (08:55)
--- NOTE | 2022-10-22 11:21 | NUR ---
PATIENT HAS BEEN SCREENED AND CATEGORIZED MODERATE NUTRITION RISK. PATIENT WILL BE SEEN WITHIN 3-5 DAYS OF ADMISSION. 10/20/22-10/25/[address]
--- NOTE | 2022-10-22 15:23 | NUR ---
EXPLAINED TO PT. AND PT. DAUGHTER -KWASI ABOUT MD D/C ORDER, D/C INSTRUCTIONS & TEACHING, PCP FOLLOW UP. PT. DAUGHTER -KWASI VERBALIZED UNDERSTANDING.
--- NOTE | 2022-10-22 15:30 | NUR ---
D/C HOME VIA WHEELCHAIR ACCOMPANIED BY PT. DAUGHTER -KWASI. NO C/O PAIN. NO SOB. IN STABLE CONDITION. INFORMED CHARGE NURSE VIKTOR TAMEZ.
--- NOTE | 2022-10-26 13:27 | NUR ---
REFUSED: CALLED [facility] LOCATED AT [address] [facility] [place] [id number]. SPOKE WITH RASHID WHO WAS ABLE TO INFORM ME THAT PATIENT WOULD HAVE TO CALL HERSELF TO MAKE APPOINTMENT FOR A HOSPITAL FOLLOW UP. CALLED PATIENT BUT NO ANSWER SO CALLED PTN DAUGHTER BLAIR AND INFORMED HER OF THE ABOVE INFORMATION SHE STATED THAT HER MOM IS STILL SICK SO IN LET HER KNOW IF SHE THINKS IT AN EMERGENCY TO BRING PATIENT TO THE NEAREST EMERGENCY ROOM AND IF NOT IT COULD MOST LIKE BE FOLLOWED UP AT THE DOCTORS OFFICE.
== END 2022-10-22 15:39 | disposition home or self-care (01) ==
LOC: MED 13:20 → MMU 16:48 → MTU 16:48
PROVIDERS: ADMIT Student in an Organized Health Care Education/Training Program; ATTEND Student in an Organized Health Care Education/Training Program
DX: E11.65 Type 2 diabetes mellitus with hyperglycemia (principal); I10 Essential (primary) hypertension; E86.1 Hypovolemia; E78.5 Hyperlipidemia, unspecified; M19.90 Unspecified osteoarthritis, unspecified site; M81.0 Age-related osteoporosis without current pathological fracture; K21.9 Gastro-esophageal reflux disease without esophagitis; Z79.82 Long term (current) use of aspirin; Z79.899 Other long term (current) drug therapy
CPT/HCPCS: 36415; 71045; 80048; 80053; 81001; 82948; 83605; 83880; 84484; 85025; 87040; 87081; 87086; 94760; 96361; 96365; 96372; 96375; 99284; G0378; J0696; J1644; J1815; J2405; Q0092

== ENCOUNTER 2022-11-04 17:30 | Inpatient (IN) | payer OTHER ==
[~2022-11-04] VITALS: Ht 154.9 cm; Wt 63.0 kg
[2022-11-04 17:34] VITALS: BP 141/76; PULSE 86; RESP 20; TEMP 98; O2SAT 99
[2022-11-04 18:09] VITALS: O2SAT 96
[2022-11-04 18:24] LABS: BASOPHILS # (AUTO) 0.1 K/uL (0.00-0.22); BASOPHILS % (AUTO) 2.3 % (0.0-2.0); EOSINOPHILS # (AUTO) 0.2 K/uL (0-0.4); HEMATOCRIT 38.6 % (36-48); HEMOGLOBIN 13.3 g/dL (12.0-16.0); LYMPHOCYTES # (AUTO) 3.6 K/uL (2.5-16.5); MEAN CORPUSCULAR HEMOGLOBIN 32 pg (27-31); MEAN CORPUSCULAR HGB CONC 34 g/dL (33-37); MEAN CORPUSCULAR VOLUME 92.3 fL (80-94); MONOCYTES # (AUTO) 0.4 K/uL (0.8-1.0); MONOCYTES % (AUTO) 7.4 % (1.7-9.3); NEUTROPHILS # (AUTO) 1.4 K/uL (1.8-7.7); NEUTROPHILS % (AUTO) 24.3 % (42.2-75.2); PLATELET COUNT (AUTO) 134 K/uL (140-450); RED BLOOD CELL COUNT(AUTO) 4.18 MIL/uL (4.20-5.40); WHITE BLOOD COUNT (AUTO) 5.7 K/uL (4.8-10.8)
--- NOTE | 2022-11-04 18:32 | NUR ---
20G IV Inserted on L Hand.
[2022-11-04] MEDS ORDERED: NACL 0.45% 1,000 ML IV ONE (18:35)
[2022-11-04] MEDS ORDERED: ENALAPRILAT 2.5 MG/2 ML VIAL IVP ONE (18:35)
--- NOTE | 2022-11-04 18:50 | NUR ---
PT went to [place] at 184
[2022-11-04 18:51] LABS: ALBUMIN 3.5 g/dL (3.4-5.0); ANION GAP 12.7 (8-16); ASPARTATE AMINOTRANSFERASE 37 U/L (15-37); CARBON DIOXIDE 23.2 mmol/L (21-32); CHLORIDE 99 mmol/L (98-107); CREATININE 0.9 mg/dL (0.6-1.3); GLUCOSE 261 mg/dL (74-106); LIPASE 232 U/L (73-393); SODIUM SERUM 132 mmol/L (136-145); TOTAL BILIRUBIN 0.2 mg/dL (0.0-1.0); UREA NITROGEN, BLOOD 9 mg/dL (7-18)
[2022-11-04 18:57] LABS: POTASSIUM 2.9 mmol/L (3.5-5.1)
--- NOTE | 2022-11-04 18:57 | NUR ---
Pt returned from CT at 185
[2022-11-04] MEDS ORDERED: ONDANSETRON 4 MG/2 ML VIAL IVP ONE (19:00)
[2022-11-04] MEDS ORDERED: MORPHINE SULFATE 4 MG/ML SYR IVP ONE (19:00)
[2022-11-04] MEDS ORDERED: POTASSIUM CHLORIDE 10 MEQ TABER PO ONE (19:00)
--- NOTE | 2022-11-04 19:23 | NUR ---
Rounding on patient, gave bedside report to PM nurse, and PM will administer IV fluids and PO meds. Purewick inserted and collecting urine, PM nurse will collect urine from patient, and send to lab. RN will administer IVP. Transfer of care to PM nurse.
--- NOTE | 2022-11-04 19:25 | NUR ---
20G IV CATH PLACED IN L AC. BLOOD AT BEDSIDE. PT TO CT
--- NOTE | 2022-11-04 19:32 | NUR ---
RECEIVED REPORT FROM DAY SHIFT NURSE. PT LYING IN BED AND C/O PAIN 09/16. CALL LIGHT WITHIN REACH. CONTINUING CARE OF PT.
[2022-11-04 19:58] VITALS: O2SAT 96
[2022-11-04 21:14] LABS: APPEARANCE,URINE CLEAR (CLEAR); BILIRUBIN,URINE NEGATIVE (NEGATIVE); BLOOD, URINE TRACE-I (NEGATIVE); COLOR,URINE YELLOW (YELLOW); LEUKOCYTE ESTERASE ,URINE NEGATIVE (NEGATIVE); NITRITE, URINE NEGATIVE (NEGATIVE); UGLUCOSE 1+ (NEGATIVE)
[2022-11-04 21:20] LABS: RBC,URINE 0-5 /HPF (0-5); TRICHOMONAS,URINE None Seen /HPF (None Seen); YEAST,URINE None Seen /HPF (None Seen)
--- NOTE | 2022-11-04 21:22 | NUR ---
URINE COLLECTED AND SENT TO LAB
--- NOTE | 2022-11-04 21:55 | NUR ---
PT TO BE ADMITED. AWAITING ADMIT ORDERS.
[2022-11-04 21:59] VITALS: O2SAT 97
[2022-11-04] MEDS ORDERED: DICY10CA14 PO (22:27)
[2022-11-04] MEDS ORDERED: GLIP10TA12 PO (22:27)
[2022-11-04] MEDS ORDERED: MAGN200T5 PO (22:27)
[2022-11-04] MEDS ORDERED: AMLO5TAB PO (22:27)
[2022-11-04] MEDS ORDERED: OXYB5TAB27 PO (22:27)
[2022-11-04] MEDS ORDERED: LISI1TAB45 PO (22:27)
[2022-11-04] MEDS ORDERED: TRI48 PO (22:27)
[2022-11-04] MEDS ORDERED: HYDR-3926 PO (22:27)
[2022-11-04] MEDS ORDERED: KCL 20 MEQ IN 100 mL PREMIX 200 ML IV PRN (22:40)
[2022-11-04] MEDS ORDERED: HYDROcodone/APAP 5/325 MG 1 TAB TAB PO PRN (22:40)
[2022-11-04] MEDS: NACL 0.9% 1,000 ML IV SCH (22:40)
[2022-11-04] MEDS ORDERED: POTASSIUM CHLORIDE 10 MEQ TABER PO PRN (22:40)
[2022-11-04] MEDS ORDERED: ONDANSETRON 4 MG/2 ML VIAL IVP PRN (22:40)
[2022-11-04] MEDS ORDERED: MAGNESIUM OXIDE 400 MG TAB PO PRN (22:40)
[2022-11-04] MEDS ORDERED: ACETAMINOPHEN 325 MG TAB PO PRN (22:40)
[2022-11-04] MEDS ORDERED: MAG SULF 2000 MG/WATER PREMIX 50 ML IV PRN (22:40)
--- NOTE | 2022-11-04 22:53 | NUR ---
PT ER HOLD. NO BED AVAILABLE MST.
[2022-11-05] VITALS (7 sets, daily range): BP systolic 123–124; BP diastolic 60–73; PULSE 85–91; RESP 15–19; TEMP 97.3–98.2; O2SAT 91–100
--- NOTE | 2022-11-05 00:22 | NUR ---
CALL MADE TO [facility] AFTER HOURS TO VERIFY ADMIT ORDER MEDICATIONS.
--- NOTE | 2022-11-05 03:01 | NUR ---
PT LYING IN BED WITH NO S/S PAIN OR DISTRESS. PT ON 2 LPM/NC. CALL LIGHT WITHIN REACH.
--- NOTE | 2022-11-05 05:30 | NUR ---
PT AWAKE AND LYING IN BED WITH NO S/S PAIN OR DISTRESS. BLOOD DRAWN AND SENT TO LAB. CALL LIGHT WITHIN REACH.
[2022-11-05 05:55] LABS: BASOPHILS # (AUTO) 0.1 K/uL (0.00-0.22); BASOPHILS % (AUTO) 1.4 % (0.0-2.0); EOSINOPHILS # (AUTO) 0.1 K/uL (0-0.4); HEMATOCRIT 38.5 % (36-48); HEMOGLOBIN 13.3 g/dL (12.0-16.0); LYMPHOCYTES # (AUTO) 2.6 K/uL (2.5-16.5); LYMPHOCYTES % (AUTO) 52.1 % (20.5-51.1); MEAN CORPUSCULAR HEMOGLOBIN 32 pg (27-31); MEAN CORPUSCULAR HGB CONC 35 g/dL (33-37); MEAN CORPUSCULAR VOLUME 92.2 fL (80-94); MONOCYTES # (AUTO) 0.4 K/uL (0.8-1.0); MONOCYTES % (AUTO) 8.5 % (1.7-9.3); NEUTROPHILS # (AUTO) 1.7 K/uL (1.8-7.7); PLATELET COUNT (AUTO) 332 K/uL (140-450); RED BLOOD CELL COUNT(AUTO) 4.18 MIL/uL (4.20-5.40); RED CELL DISTRIBUTION WIDTH 13.3 % (11.6-13.7); WHITE BLOOD COUNT (AUTO) 4.9 K/uL (4.8-10.8)
[2022-11-05 06:26] LABS: ALBUMIN 3.1 g/dL (3.4-5.0); ANION GAP 10.9 (8-16); ASPARTATE AMINOTRANSFERASE 43 U/L (15-37); CARBON DIOXIDE 24.1 mmol/L (21-32); CHLORIDE 103 mmol/L (98-107); CREATININE 0.9 mg/dL (0.6-1.3); GLUCOSE 171 mg/dL (74-106); PHOSPHORUS 3.6 mg/dL (2.5-4.9); SODIUM SERUM 134 mmol/L (136-145); TOTAL BILIRUBIN 0.2 mg/dL (0.0-1.0); UREA NITROGEN, BLOOD 9 mg/dL (7-18)
--- NOTE | 2022-11-05 07:15 | NUR ---
Pt report given to MELIA MARSHALL. Transfer of care at this time.
--- NOTE | 2022-11-05 07:16 | NUR ---
CONTINUATION OF CARE AT THIS POINT. REPORT RECIEVED FROM JOANNA CÁRDENAS.
--- NOTE | 2022-11-05 09:14 | NUR ---
Patient will be admitted to care of MARILEE DOE JR. Admited to MED/SURG. Will go to room 120A. Belongings list completed. Report to COLT.
--- NOTE | 2022-11-05 09:20 | NUR ---
RECEIVED REPORT FROM ER NURSE FOR THE TRANSFER OF CARE. PT CAME IN VIA NINO ASSISTED BY HER DAUGHTER. PT IS AWAKE, NO SIGN OF DISTRESS, ORIENTED TO THE NEW ENVIRONMENT, CALL LIGHT, BATHROOM, TV, AND BED MECHANICS. CALL LIGHT WITHIN REACH.
--- NOTE | 2022-11-05 09:53 | NUR ---
PATIENT HAS BEEN SCREENED AND CATEGORIZED MODERATE NUTRITION RISK. PATIENT WILL BE SEEN WITHIN 3-5 DAYS OF ADMISSION. 11/04/22-11/09/[address]
[2022-11-05] MEDS: DOCUSATE SODIUM 100 MG GELCAP PO SCH (10:19)
[2022-11-05] MEDS: NACL 0.9% 1,000 ML IV SCH ×2 (11:10→23:40)
[2022-11-05] MEDS: POLYETHYLENE GLYCOL 17 GM/PKT PO SCH (12:25)
[2022-11-05] MEDS ORDERED: LACTULOSE 20 GM/30 ML UDC PO PRN (12:25)
[2022-11-05] MEDS ORDERED: LACTULOSE 20 GM/30 ML UDC PO SCH (12:35)
[2022-11-05] MEDS: SENNA 8.6 MG TAB PO SCH ×2 (13:13→21:43)
[2022-11-05] MEDS: PANTOPRAZOLE 40 MG TABEC PO SCH ×2 (13:14→21:42)
[2022-11-05] MEDS: MORPHINE SULFATE 4 MG/ML SYR IVP PRN (13:17)
[2022-11-05] MEDS ORDERED: DEXTROSE 50% 50 ML SYR IVP PRN (13:55)
[2022-11-05] MEDS: BLOOD GLUCOSE MONITORING 1 DEV DEV FS SCH ×2 (16:23→21:51)
[2022-11-05] MEDS: INSULIN LISPRO SLIDING SCALE 100 UNITS/ML VIAL SUBQ PRN ×2 (16:26→21:54)
--- NOTE | 2022-11-05 19:10 | NUR ---
GAVE BEDSIDE REPORT TO STRAW HAT BRIM CUTTER OPERATOR NURSE FOR CONTINUITY OF CARE, PT IS ASLEEP, NO SIGN OF DISTRESS. DAUGHTER AT BEDSIDE. CALL LIGHT WITHIN REACH.
--- NOTE | 2022-11-05 22:00 | NUR ---
2100 MEDICATIONS WERE ADMINISTERED SUCCESSFULLY WITHOUT ANY ISSUES WITH SWALLOWING. BREATHING IS NORMAL WITH SYMMETRICAL RISE AND FALL OF CHEST. WILL CONTINUE TO OBSERVE PATIENT.
--- NOTE | 2022-11-05 23:18 | NUR ---
RECEIVED REPORT FROM ER NURSE BORGES FOR CONTINUITY OF CARE. PATIENT IS A&O X4, BRUNEIAN SPEAKING. PATIENT IS ON ROOM AIR, BREATHING IS NORMAL WITH SYMMETRICAL RISE AND FALL OF CHEST. IV IS A 20G HAND; RUNNING NS AT 80 ML/HR. PATIENT IS LYING IN SEMI-FOWLERS POSITION ON BED. BED IS IN LOWEST POSITION, WHEELS LOCKED, CALL LIGHT IN PLACE. WILL CONTINUE TO OBSERVE PATIENT. Addendum: 11/05/22 at 3917 by Lavelle Tay RN RECEIVED REPORT FROM DAY SHIFT NURSE KATERINA FOR CONTINUITY OF CARE AT 1930
--- NOTE | 2022-11-06 01:50 | NUR ---
PATIENT HAD REMOVED PUREWICK. PATIENT VOIDED ON BED. PATIENT WAS CLEANED AND CHANGED; AND NEW GOWN, CHUCKS AND BLANKETS WERE GIVEN BY DOUG HUMPHREY. PATIENT TOLERATED CHANGE WELL. PATIENT IS NOW RESTING, BREATHING IS NORMAL WITH SYMMETRICAL RISE AND FALL OF CHEST. WILL CONTINUE TO OBSERVE PATIENT.
[2022-11-06] MEDS: NACL 0.9% 1,000 ML IV SCH (02:53)
--- NOTE | 2022-11-06 02:55 | NUR ---
IV BAG FINISHED. HUNG NEW IV BAG. NS IS RUNNING 80 ML/HR. PATIENT IS SLEEPING; BREATHING IS NORMAL WITH SYMMETRICAL RISE AND FALL OF CHEST. WILL CONTINUE TO OBSERVE PATIENT.
[2022-11-06 04:00] VITALS: BP 126/65; PULSE 75; RESP 18; TEMP 97.1; O2SAT 95
--- NOTE | 2022-11-06 05:00 | NUR ---
PATIENT'S PURE WICK BECAME DISLODGED AND PATIENT HAD VOIDED. PATIENT WAS CLEANED AND NEW CHUCKS WERE AND BLANKETS WERE PROVIDED BY DOUG HUMPHREY. PUREWICK WAS PUT BACK INTO PLACE. PATIENT IS RESTING LYING ON HER RIGHT SIDE. WILL CONTINUE TO OBSERVE PATIENT.
[2022-11-06 05:26] LABS: BASOPHILS # (AUTO) 0.1 K/uL (0.00-0.22); BASOPHILS % (AUTO) 2.4 % (0.0-2.0); EOSINOPHILS # (AUTO) 0.2 K/uL (0-0.4); EOSINOPHILS % (AUTO) 3.6 % (0.0-4.0); HEMATOCRIT 37.4 % (36-48); LYMPHOCYTES % (AUTO) 61.5 % (20.5-51.1); MEAN CORPUSCULAR HEMOGLOBIN 32 pg (27-31); MEAN CORPUSCULAR HGB CONC 35 g/dL (33-37); MEAN CORPUSCULAR VOLUME 92.1 fL (80-94); MONOCYTES # (AUTO) 0.4 K/uL (0.8-1.0); MONOCYTES % (AUTO) 7.8 % (1.7-9.3); NEUTROPHILS # (AUTO) 1.2 K/uL (1.8-7.7); NEUTROPHILS % (AUTO) 24.7 % (42.2-75.2); PLATELET COUNT (AUTO) 328 K/uL (140-450); RED BLOOD CELL COUNT(AUTO) 4.06 MIL/uL (4.20-5.40); RED CELL DISTRIBUTION WIDTH 13.2 % (11.6-13.7); WHITE BLOOD COUNT (AUTO) 4.8 K/uL (4.8-10.8)
[2022-11-06 06:12] LABS: ALBUMIN 3.4 g/dL (3.4-5.0); ANION GAP 12.5 (8-16); ASPARTATE AMINOTRANSFERASE 38 U/L (15-37); CARBON DIOXIDE 25.9 mmol/L (21-32); CHLORIDE 101 mmol/L (98-107); CREATININE 0.8 mg/dL (0.6-1.3); GLUCOSE 194 mg/dL (74-106); MAGNESIUM 1.9 mg/dL (1.8-2.4); PHOSPHORUS 3.2 mg/dL (2.5-4.9); POTASSIUM 3.4 mmol/L (3.5-5.1); SODIUM SERUM 136 mmol/L (136-145); TOTAL BILIRUBIN 0.3 mg/dL (0.0-1.0); UREA NITROGEN, BLOOD 7 mg/dL (7-18)
[2022-11-06] MEDS: INSULIN LISPRO SLIDING SCALE 100 UNITS/ML VIAL SUBQ PRN ×2 (06:41→11:31)
--- NOTE | 2022-11-06 07:05 | NUR ---
PATIENT CALLED AND IV HAD COME OUT, HAND WAS BLEEDING. APPLIED PRESSURE TO WHERE IV WAS AND CLEANED PATIENT'S HAND. REMOVED TOP BLANKET AND DRAW SHEET LOCATED UNDER PATIENT. APPLIED NEW DRAW SHEET UNDER PATIENT AND PLACED NEW BLANKET OVER PATIENT. OLD IV WAS DISPOSED OF IN SHARPS CONTAINER. TURNED OFF PATIENT'S IV. INFORMED DAY SHIFT NURSE KATERINA OF WHAT HAD JUST HAPPENED. DAY SHIFT NURSE WILL TAKE OVER.
--- NOTE | 2022-11-06 07:06 | NUR ---
ENDORSED TO DAY SHIFT NURSE KATERINA FOR CONTINUITY OF CARE. PATIENT IS STABLE.
--- NOTE | 2022-11-06 07:10 | NUR ---
RECEIVED BEDSIDE REPORT FROM CONTROL ROOM TECHNICIAN NURSE FOR CONTINUITY OF CARE. PT IS ASLEEP, AWAKEN BY NAME. NO SIGN OF DISTRESS. CALL LIGHT WITHIN REACH.
[2022-11-06] MEDS: BLOOD GLUCOSE MONITORING 1 DEV DEV FS SCH ×3 (07:38→17:14)
[2022-11-06 08:00] VITALS: PULSE 74; RESP 18; O2SAT 91
[2022-11-06] MEDS: SENNA 8.6 MG TAB PO SCH (10:17)
[2022-11-06] MEDS: DOCUSATE SODIUM 100 MG GELCAP PO SCH (10:17)
[2022-11-06] MEDS: POLYETHYLENE GLYCOL 17 GM/PKT PO SCH (10:18)
[2022-11-06] MEDS: PANTOPRAZOLE 40 MG TABEC PO SCH (10:25)
[2022-11-06] MEDS: MORPHINE SULFATE 4 MG/ML SYR IVP PRN (11:28)
[2022-11-06] MEDS ORDERED: DOCU-299 PO (15:54)
[2022-11-06] MEDS ORDERED: LACT10SO11 PO (15:54)
--- NOTE | 2022-11-06 16:01 | NUR ---
DC PLANNING 77 YEAR OLD FEMALE PRESENTED TO ED FOR ABDOMINAL PAIN WITH ASSOCIATED NAUSEA AND VOMITING.PATIENT HAS HX OF DM,HTN,ARTHRITIS ,HLD, PITUITARY ADENOMA, OSTEOPOROSIS AND GERD.PATIENT IS ALSO CONSTIPATED AND WAS GIVEN COLACE AND MIRALAX.PAIN MEDS: MORPHINE,NORCO AND TYLENOL.PT EVAL DONE AND PT RECOMMENDED HOME HEALTH PT.[facility] WILL SEE PATIENT . CLINICALS FAXED TO [facility] AT .DC ORDER FAXED TO [facility].PATIENT HAD 2BMS.
[2022-11-06 16:23] VITALS: BP 138/67
--- NOTE | 2022-11-06 17:35 | NUR ---
PT WAS DISCHARGED, LEFT THE UNIT VIA WHEELCHAIR, ACCOMPANIED BY ME AND THE DAUGHTER. PT IS STABLE, NO SIGN OF DISTRESS. DISCHARGE TEACHING AND PAPERS GIVEN. IV AND ID BAND REMOVED.
== END 2022-11-06 17:35 | disposition home health service (06) | DRG 426 ==
LOC: MED 17:30 → INTOOBSV 22:50 → MMU 22:50 → OBSVTOIN 22:51 → MTU 11-05 05:47
PROVIDERS: ADMIT Internal Medicine; ATTEND Internal Medicine
DX: E87.1 Hypo-osmolality and hyponatremia (principal); K76.0 Fatty (change of) liver, not elsewhere classified; N13.30 Unspecified hydronephrosis; E87.6 Hypokalemia; K59.00 Constipation, unspecified; D35.2 Benign neoplasm of pituitary gland; R16.0 Hepatomegaly, not elsewhere classified; I25.10 Atherosclerotic heart disease of native coronary artery without angina pectoris; I70.0 Atherosclerosis of aorta; M81.0 Age-related osteoporosis without current pathological fracture; E11.9 Type 2 diabetes mellitus without complications; K21.9 Gastro-esophageal reflux disease without esophagitis; I10 Essential (primary) hypertension; M47.816 Spondylosis without myelopathy or radiculopathy, lumbar region; E03.9 Hypothyroidism, unspecified; M19.90 Unspecified osteoarthritis, unspecified site; E78.00 Pure hypercholesterolemia, unspecified; Z79.899 Other long term (current) drug therapy
CPT/HCPCS: 36415; 80053; 81001; 82948; 83605; 83690; 83735; 84100; 84443; 85025; 87040; 87081; 96374; 96375; 97110; 97116; 97530; 99285; G0378; J1644; J1815; J2270; J2405; J3490

== ENCOUNTER 2023-01-03 07:11 | Inpatient (IN) | payer OTHER ==
[~2023-01-03] VITALS: Ht 152.4 cm; Wt 59.0 kg
[~2023-01-03 07:11] MED LIST changes: -ACET-10509 PO; -AMLO-3 PO; +AMLO5TAB PO; -ASPI-1749 PO; -ATOR10TA PO; +DICY10CA2 PO; +DOCU-299 PO; -ERGO-30 PO; -FAMO-92 PO; -FOS70 PO; -GABA300C PO; +GLIP10TA12 PO; -GLIP5TER PO; -HYDR-87 PO; -HYDR5TAB PO; +LACT10SO11 PO; +LISI1TAB45 PO; -LOPE-231 PO; +MAGN200T5 PO; -MECL-303 PO; -METF-346 PO; -NITR100C7 PO; +OXYB5TAB PO; -PIOG15TA84 PO; +TRI48 PO
[2023-01-03 07:38] VITALS: BP 119/69; PULSE 76; RESP 17; TEMP 98; O2SAT 100
[2023-01-03 09:43] LABS: BASOPHILS # (AUTO) 0.1 K/uL (0.00-0.22); BASOPHILS % (AUTO) 1.1 % (0.0-2.0); EOSINOPHILS # (AUTO) 0.2 K/uL (0-0.4); EOSINOPHILS % (AUTO) 1.6 % (0.0-4.0); HEMATOCRIT 41.1 % (36-48); HEMOGLOBIN 13.7 g/dL (12.0-16.0); LYMPHOCYTES # (AUTO) 4.8 K/uL (2.5-16.5); LYMPHOCYTES % (AUTO) 40.8 % (20.5-51.1); MEAN CORPUSCULAR HEMOGLOBIN 32 pg (27-31); MEAN CORPUSCULAR HGB CONC 33 g/dL (33-37); MEAN CORPUSCULAR VOLUME 95.1 fL (80-94); MONOCYTES # (AUTO) 0.8 K/uL (0.8-1.0); MONOCYTES % (AUTO) 6.9 % (1.7-9.3); NEUTROPHILS # (AUTO) 5.9 K/uL (1.8-7.7); NEUTROPHILS % (AUTO) 49.6 % (42.2-75.2); PLATELET COUNT (AUTO) 330 K/uL (140-450); RED BLOOD CELL COUNT(AUTO) 4.32 MIL/uL (4.20-5.40); RED CELL DISTRIBUTION WIDTH 13.9 % (11.6-13.7); WHITE BLOOD COUNT (AUTO) 11.9 K/uL (4.8-10.8)
[2023-01-03 09:47] LABS: APPEARANCE,URINE CLEAR (CLEAR); BILIRUBIN,URINE NEGATIVE (NEGATIVE); BLOOD, URINE 3+ (NEGATIVE); COLOR,URINE YELLOW (YELLOW); LEUKOCYTE ESTERASE ,URINE NEGATIVE (NEGATIVE); NITRITE, URINE NEGATIVE (NEGATIVE); PROTEIN,URINE TRACE (NEGATIVE); UGLUCOSE NEGATIVE (NEGATIVE); UROBILINOGEN,URINE 0.2 EU/dL (0.2 - 1)
[2023-01-03 09:49] LABS: INR 1.16 (0.8-1.2); PARTIAL THROMBOPLASTIN TIME 22.4 secs (22-35.6); PROTHROMBIN TIME 12.1 secs (10.8-13.4)
[2023-01-03 10:02] LABS: ALANINE AMINOTRANSFERASE 275 U/L (12-78); ALBUMIN 3.4 g/dL (3.4-5.0); ALKALINE PHOSPHATASE 164 U/L (50-136); ANION GAP 9.7 (8-16); ASPARTATE AMINOTRANSFERASE 640 U/L (15-37); CALCIUM 8.9 mg/dL (8.5-10.1); CARBON DIOXIDE 27.1 mmol/L (21-32); CHLORIDE 100 mmol/L (98-107); CREATININE 1.3 mg/dL (0.6-1.3); GLUCOSE 144 mg/dL (74-106); POTASSIUM 4.8 mmol/L (3.5-5.1); SODIUM SERUM 132 mmol/L (136-145); TOTAL BILIRUBIN 0.3 mg/dL (0.0-1.0); TOTAL PROTEIN, SERUM 6.5 g/dL (6.4-8.2); UREA NITROGEN, BLOOD 34 mg/dL (7-18)
[2023-01-03 10:08] LABS: BACTERIA,URINE 0-2 /HPF (None Seen); RBC,URINE 0-5 /HPF (0-5); WBC,URINE 0-5 /HPF (0-5)
[2023-01-03 10:09] LABS: SQUAMOUS EPITHELIAL CELL,UR 0-3 (FEW) /LPF (0-3 (FEW))
[2023-01-03] MEDS ORDERED: KCL 20 MEQ IN 100 mL PREMIX 200 ML IV PRN (12:10)
[2023-01-03] MEDS ORDERED: POTASSIUM CHLORIDE 10 MEQ TABER PO PRN (12:10)
[2023-01-03] MEDS ORDERED: LORazepam 1 MG TAB PO PRN (12:10)
[2023-01-03] MEDS ORDERED: ZOLPIDEM 5 MG TAB PO PRN (12:10)
[2023-01-03] MEDS ORDERED: ACETAMINOPHEN 325 MG TAB PO PRN (12:10)
[2023-01-03] MEDS ORDERED: ONDANSETRON 4 MG/2 ML VIAL IVP PRN (12:10)
[2023-01-03] MEDS ORDERED: LORazepam 2 MG/ML VIAL IVP ONE (12:10)
[2023-01-03] MEDS ORDERED: MAG SULF 2000 MG/WATER PREMIX 50 ML IV PRN (12:10)
[2023-01-03] MEDS ORDERED: MORPHINE SULFATE 4 MG/ML SYR IVP PRN (12:10)
[2023-01-03] MEDS ORDERED: HYDROcodone/APAP 5/325 MG 1 TAB TAB PO PRN (12:10)
[2023-01-03] MEDS ORDERED: AMLO-3 PO (13:25)
[2023-01-03] MEDS ORDERED: EZET10TA50 PO (13:25)
[2023-01-03] MEDS ORDERED: LEVO0.0712 PO (13:25)
[2023-01-03] MEDS ORDERED: CHOL100084 PO (13:25)
[2023-01-03] MEDS ORDERED: [UNRECOGNIZED DRUG - CODE] PO (13:25)
[2023-01-03] MEDS ORDERED: FAMO40TA12 PO (13:25)
[2023-01-03] MEDS ORDERED: GLIP10TA12 PO (13:25)
[2023-01-03] MEDS ORDERED: FENO134C23 PO (13:25)
[2023-01-03] MEDS ORDERED: PIOG15TA24 PO (13:25)
[2023-01-03] MEDS ORDERED: [UNRECOGNIZED DRUG - CODE] PO (13:25)
[2023-01-03] MEDS ORDERED: SIME80CT27 PO (13:25)
[2023-01-03 13:35] VITALS: BP 126/63; PULSE 76; PULSE 83; RESP 18; TEMP 97.1; O2SAT 95
[2023-01-03 16:00] VITALS: BP 118/58; PULSE 83; PULSE 84; RESP 18; TEMP 97.1; O2SAT 94
[2023-01-03 20:00] VITALS: BP 121/54; PULSE 79; PULSE 81; RESP 16; TEMP 97; O2SAT 92
[2023-01-03] MEDS: ATORVASTATIN 20 MG TAB PO SCH (20:41)
[2023-01-03 23:48] VITALS: PULSE 78
[2023-01-04] VITALS (10 sets, daily range): BP systolic 106–148; BP diastolic 57–73; PULSE 66–83; RESP 16–20; TEMP 97.1–99; O2SAT 93–99
[2023-01-04 05:44] LABS: BASOPHILS # (AUTO) 0.1 K/uL (0.00-0.22); BASOPHILS % (AUTO) 1.3 % (0.0-2.0); EOSINOPHILS # (AUTO) 0.4 K/uL (0-0.4); EOSINOPHILS % (AUTO) 3.9 % (0.0-4.0); HEMATOCRIT 44.2 % (36-48); HEMOGLOBIN 14.9 g/dL (12.0-16.0); LYMPHOCYTES # (AUTO) 4.8 K/uL (2.5-16.5); LYMPHOCYTES % (AUTO) 48.7 % (20.5-51.1); MEAN CORPUSCULAR HEMOGLOBIN 32 pg (27-31); MEAN CORPUSCULAR HGB CONC 34 g/dL (33-37); MEAN CORPUSCULAR VOLUME 95.8 fL (80-94); MONOCYTES # (AUTO) 0.6 K/uL (0.8-1.0); NEUTROPHILS # (AUTO) 3.9 K/uL (1.8-7.7); NEUTROPHILS % (AUTO) 40.1 % (42.2-75.2); PLATELET COUNT (AUTO) 247 K/uL (140-450); RED BLOOD CELL COUNT(AUTO) 4.62 MIL/uL (4.20-5.40); RED CELL DISTRIBUTION WIDTH 14.2 % (11.6-13.7); WHITE BLOOD COUNT (AUTO) 9.8 K/uL (4.8-10.8)
[2023-01-04 05:51] LABS: ANION GAP 11.3 (8-16); CALCIUM 8.8 mg/dL (8.5-10.1); CHLORIDE 101 mmol/L (98-107); CREATININE 1.2 mg/dL (0.6-1.3); GLUCOSE 72 mg/dL (74-106); POTASSIUM 4.3 mmol/L (3.5-5.1); SODIUM SERUM 135 mmol/L (136-145); UREA NITROGEN, BLOOD 30 mg/dL (7-18)
[2023-01-04] MEDS: ASPIRIN 81 MG TAB.CHEW PO SCH (08:42)
[2023-01-04] MEDS: LEVOTHYROXINE 0.075 MG TAB PO SCH (15:40)
[2023-01-04] MEDS: amLODIPine 5 MG TAB PO SCH (15:40)
[2023-01-04] MEDS: ATORVASTATIN 20 MG TAB PO SCH (20:16)
[2023-01-05] VITALS: BP 149/72; PULSE 74; RESP 18; TEMP 97.6; O2SAT 93
[2023-01-05 04:00] VITALS: BP 144/72; PULSE 67; PULSE 71; RESP 18; TEMP 96.9; O2SAT 96
[2023-01-05] MEDS: LEVOTHYROXINE 0.075 MG TAB PO SCH (06:16)
[2023-01-05 06:20] LABS: ANION GAP 11.8 (8-16); CALCIUM 8.8 mg/dL (8.5-10.1); CARBON DIOXIDE 26.4 mmol/L (21-32); CHLORIDE 96 mmol/L (98-107); CREATININE 1.1 mg/dL (0.6-1.3); GLUCOSE 108 mg/dL (74-106); POTASSIUM 4.2 mmol/L (3.5-5.1); SODIUM SERUM 130 mmol/L (136-145); UREA NITROGEN, BLOOD 25 mg/dL (7-18)
[2023-01-05 07:22] LABS: BASOPHILS # (AUTO) 0.1 K/uL (0.00-0.22); BASOPHILS % (AUTO) 0.8 % (0.0-2.0); EOSINOPHILS # (AUTO) 0.4 K/uL (0-0.4); HEMATOCRIT 43.9 % (36-48); HEMOGLOBIN 14.9 g/dL (12.0-16.0); LYMPHOCYTES # (AUTO) 4.1 K/uL (2.5-16.5); LYMPHOCYTES % (AUTO) 49.4 % (20.5-51.1); MEAN CORPUSCULAR HEMOGLOBIN 32 pg (27-31); MEAN CORPUSCULAR HGB CONC 34 g/dL (33-37); MEAN CORPUSCULAR VOLUME 95.2 fL (80-94); MONOCYTES # (AUTO) 0.5 K/uL (0.8-1.0); MONOCYTES % (AUTO) 6.1 % (1.7-9.3); NEUTROPHILS # (AUTO) 3.2 K/uL (1.8-7.7); NEUTROPHILS % (AUTO) 38.7 % (42.2-75.2); PLATELET COUNT (AUTO) 247 K/uL (140-450); RED BLOOD CELL COUNT(AUTO) 4.61 MIL/uL (4.20-5.40); RED CELL DISTRIBUTION WIDTH 13.8 % (11.6-13.7); WHITE BLOOD COUNT (AUTO) 8.3 K/uL (4.8-10.8)
[2023-01-05 08:00] VITALS: BP 141/70; PULSE 68; PULSE 75; PULSE 76; RESP 16; TEMP 97; O2SAT 97
[2023-01-05] MEDS: amLODIPine 5 MG TAB PO SCH (08:22)
[2023-01-05] MEDS: ASPIRIN 81 MG TAB.CHEW PO SCH (08:22)
[2023-01-05 09:08] VITALS: PULSE 68; RESP 16; O2SAT 93
[2023-01-05 12:00] VITALS: BP 134/59; PULSE 75; PULSE 81; RESP 19; TEMP 98; O2SAT 95
[2023-01-05 16:00] VITALS: BP 136/79; PULSE 81; RESP 18; TEMP 98.5; O2SAT 97
[2023-01-05] MEDS ORDERED: ATOR20TA40 PO (16:05)
[2023-01-05] MEDS ORDERED: ASPI81CT95 PO (16:05)
[2023-01-05] MEDS ORDERED: METF-346 PO (16:09)
== END 2023-01-05 18:10 | disposition home health service (06) | DRG 45 ==
LOC: MED 07:11 → OBSVTOIN 12:11 → MTU 12:11
PROVIDERS: ADMIT Internal Medicine; ATTEND Internal Medicine
DX: I63.9 Cerebral infarction, unspecified (principal); G81.91 Hemiplegia, unspecified affecting right dominant side; D35.2 Benign neoplasm of pituitary gland; D72.829 Elevated white blood cell count, unspecified; E11.9 Type 2 diabetes mellitus without complications; E03.9 Hypothyroidism, unspecified; K21.9 Gastro-esophageal reflux disease without esophagitis; R74.01 Elevation of levels of liver transaminase levels
CPT/HCPCS: 36415; 70450; 71045; 76705; 80048; 80053; 81001; 83735; 84484; 85025; 85610; 85730; 87081; 92526; 92610; 93005; 96374; 97112; 97116; 97163-GP; 97530; 99291; Q0092; Q9967

== ENCOUNTER 2023-01-12 01:40 | Emergency (ER) | payer OTHER ==
[~2023-01-12] VITALS: Ht 165.1 cm; Wt 59.0 kg
[~2023-01-12 01:40] MED LIST changes: +AMLO-3 PO; -AMLO5TAB PO; +ASPI81CT95 PO; +ATOR20TA40 PO; -DICY10CA2 PO; +FAMO40TA12 PO; -GLIP10TA12 PO; -HYDR-3926 PO; -IBUP-2213 PO; +LEVO0.0712 PO; -LISI1TAB45 PO; -MAGN200T5 PO; +METF-346 PO; -OXYB5TAB PO; -SIME80TA41 PO; -SYN.05 PO; -TRI48 PO; +[UNRECOGNIZED DRUG - CODE] PO; -[UNRECOGNIZED DRUG - CODE] PO
[2023-01-12 01:43] VITALS: BP 116/56; PULSE 72; RESP 18; TEMP 97.4; O2SAT 98
[2023-01-12] MEDS ORDERED: MORPHINE SULFATE 2 MG/ML SYR IVP STA (03:34)
[2023-01-12] MEDS ORDERED: ONDANSETRON 4 MG/2 ML VIAL IVP ONE (03:35)
[2023-01-12 03:54] LABS: BASOPHILS # (AUTO) 0.1 K/uL (0.00-0.22); BASOPHILS % (AUTO) 1.4 % (0.0-2.0); EOSINOPHILS # (AUTO) 0.3 K/uL (0-0.4); EOSINOPHILS % (AUTO) 3.6 % (0.0-4.0); HEMOGLOBIN 13.4 g/dL (12.0-16.0); LYMPHOCYTES # (AUTO) 3.5 K/uL (2.5-16.5); LYMPHOCYTES % (AUTO) 44.7 % (20.5-51.1); MEAN CORPUSCULAR HEMOGLOBIN 32 pg (27-31); MEAN CORPUSCULAR HGB CONC 34 g/dL (33-37); MEAN CORPUSCULAR VOLUME 93.4 fL (80-94); MONOCYTES # (AUTO) 0.6 K/uL (0.8-1.0); MONOCYTES % (AUTO) 7.8 % (1.7-9.3); NEUTROPHILS # (AUTO) 3.4 K/uL (1.8-7.7); NEUTROPHILS % (AUTO) 42.5 % (42.2-75.2); PLATELET COUNT (AUTO) 377 K/uL (140-450); RED BLOOD CELL COUNT(AUTO) 4.18 MIL/uL (4.20-5.40); RED CELL DISTRIBUTION WIDTH 13.3 % (11.6-13.7); WHITE BLOOD COUNT (AUTO) 7.9 K/uL (4.8-10.8)
[2023-01-12 04:10] LABS: ALANINE AMINOTRANSFERASE 116 U/L (12-78); ALBUMIN 3.5 g/dL (3.4-5.0); ALKALINE PHOSPHATASE 114 U/L (50-136); ANION GAP 12.3 (8-16); ASPARTATE AMINOTRANSFERASE 76 U/L (15-37); CALCIUM 9.4 mg/dL (8.5-10.1); CARBON DIOXIDE 26.8 mmol/L (21-32); CHLORIDE 91 mmol/L (98-107); CREATININE 1.1 mg/dL (0.6-1.3); GLUCOSE 88 mg/dL (74-106); LIPASE 55 U/L (16-77); POTASSIUM 3.1 mmol/L (3.5-5.1); SODIUM SERUM 127 mmol/L (136-145); TOTAL BILIRUBIN 0.3 mg/dL (0.0-1.0); TOTAL PROTEIN, SERUM 7.3 g/dL (6.4-8.2); UREA NITROGEN, BLOOD 13 mg/dL (7-18)
[2023-01-12 05:07] LABS: APPEARANCE,URINE CLEAR (CLEAR); BILIRUBIN,URINE NEGATIVE (NEGATIVE); BLOOD, URINE NEGATIVE (NEGATIVE); COLOR,URINE YELLOW (YELLOW); LEUKOCYTE ESTERASE ,URINE NEGATIVE (NEGATIVE); NITRITE, URINE NEGATIVE (NEGATIVE); PH,URINE 7.5 (5.0-9.0); PROTEIN,URINE NEGATIVE (NEGATIVE); UGLUCOSE NEGATIVE (NEGATIVE); UROBILINOGEN,URINE 0.2 EU/dL (0.2 - 1)
[2023-01-12] MEDS ORDERED: POTASSIUM CHLORIDE 10 MEQ TABER PO ONE (06:20)
[2023-01-12] MEDS ORDERED: NACL 0.9% 1,000 ML IV ONE (06:20)
[2023-01-12] MEDS ORDERED: CIPR500T4 PO (10:32)
[2023-01-12] MEDS ORDERED: METR-435 PO (10:32)
[2023-01-12 10:57] VITALS: BP 134/60; PULSE 73; RESP 16; TEMP 97.7; O2SAT 97
== END 2023-01-12 10:59 | disposition home or self-care (01) ==
LOC: MED 01:40
DX: K52.9 Noninfective gastroenteritis and colitis, unspecified (principal); R11.0 Nausea; E11.9 Type 2 diabetes mellitus without complications; Z79.899 Other long term (current) drug therapy; Z79.84 Long term (current) use of oral hypoglycemic drugs
CPT/HCPCS: 36415; 74176; 80053; 81003; 83690; 85025; 96361; 96374; 96375; 99285; J2270; J2405; J7030

== ENCOUNTER 2023-02-02 02:25 | Inpatient (IN) | payer OTHER ==
[~2023-02-02] VITALS: Ht 157.5 cm; Wt 74.8 kg
[~2023-02-02 02:25] MED LIST changes: +CIPR500T4 PO; +METR-435 PO
[2023-02-02 02:36] VITALS: BP 100/77; PULSE 112; RESP 18; TEMP 96.3; O2SAT 96
[2023-02-02] MEDS ORDERED: NACL 0.9% 1,000 ML IV ONE ×2 (03:25→04:40)
[2023-02-02] MEDS ORDERED: cefTRIAXone 2,000 MG in DEXTROSE 5% 100 ML IV ONE (03:25)
[2023-02-02] MEDS ORDERED: cefTRIAXone 2,000 MG VIAL ONE (04:31)
[2023-02-02 04:38] LABS: BASOPHILS # (AUTO) 0.1 K/uL (0.00-0.22); BASOPHILS % (AUTO) 0.5 % (0.0-2.0); EOSINOPHILS # (AUTO) 0.1 K/uL (0-0.4); EOSINOPHILS % (AUTO) 1.1 % (0.0-4.0); HEMATOCRIT 29.1 % (36-48); LYMPHOCYTES # (AUTO) 2.7 K/uL (2.5-16.5); LYMPHOCYTES % (AUTO) 28.6 % (20.5-51.1); MEAN CORPUSCULAR HEMOGLOBIN 32 pg (27-31); MEAN CORPUSCULAR HGB CONC 34 g/dL (33-37); MEAN CORPUSCULAR VOLUME 92.2 fL (80-94); MONOCYTES % (AUTO) 10.4 % (1.7-9.3); NEUTROPHILS # (AUTO) 5.6 K/uL (1.8-7.7); NEUTROPHILS % (AUTO) 59.4 % (42.2-75.2); PLATELET COUNT (AUTO) 194 K/uL (140-450); RED BLOOD CELL COUNT(AUTO) 3.16 MIL/uL (4.20-5.40); RED CELL DISTRIBUTION WIDTH 13.6 % (11.6-13.7); WHITE BLOOD COUNT (AUTO) 9.5 K/uL (4.8-10.8)
[2023-02-02] MEDS ORDERED: ACETAMINOPHEN EXTRA STRENGTH 500 MG TAB PO ONE (04:40)
[2023-02-02 04:52] LABS: ALANINE AMINOTRANSFERASE 19 U/L (12-78); ALBUMIN 2.5 g/dL (3.4-5.0); ALKALINE PHOSPHATASE 73 U/L (50-136); ANION GAP 9.8 (8-16); ASPARTATE AMINOTRANSFERASE 26 U/L (15-37); CALCIUM 6.3 mg/dL (8.5-10.1); CARBON DIOXIDE 23.3 mmol/L (21-32); CHLORIDE 102 mmol/L (98-107); CREATININE 0.8 mg/dL (0.6-1.3); GLUCOSE 89 mg/dL (74-106); TOTAL BILIRUBIN 0.6 mg/dL (0.0-1.0); TOTAL PROTEIN, SERUM 5.2 g/dL (6.4-8.2); UREA NITROGEN, BLOOD 8 mg/dL (7-18)
[2023-02-02 04:57] LABS: POTASSIUM 2.1 mmol/L (3.5-5.1)
[2023-02-02 04:59] LABS: SODIUM SERUM 133 mmol/L (136-145)
[2023-02-02 05:09] LABS: APPEARANCE,URINE CLEAR (CLEAR); BILIRUBIN,URINE NEGATIVE (NEGATIVE); BLOOD, URINE 1+ (NEGATIVE); COLOR,URINE YELLOW (YELLOW); LEUKOCYTE ESTERASE ,URINE 2+ (NEGATIVE); NITRITE, URINE POSITIVE (NEGATIVE); PROTEIN,URINE 2+ (NEGATIVE); UGLUCOSE NEGATIVE (NEGATIVE)
[2023-02-02 05:26] LABS: SQUAMOUS EPITHELIAL CELL,UR 0-3 (FEW) /LPF (0-3 (FEW)); WBC,URINE TOO MANY TO COUNT /HPF (0-5)
[2023-02-02 05:27] LABS: BACTERIA,URINE >30 (MANY) /HPF (None Seen); MUCUS,URINE 1+ /LPF (None Seen)
[2023-02-02 05:28] LABS: LACTIC ACID 1.5 mmol/L (0.4-2.0)
[2023-02-02] MEDS ORDERED: MAG SULF 2000 MG/WATER PREMIX 50 ML IV PRN (06:10)
[2023-02-02] MEDS ORDERED: ZOLPIDEM 5 MG TAB PO PRN (06:10)
[2023-02-02] MEDS ORDERED: LORazepam 1 MG TAB PO PRN (06:10)
[2023-02-02] MEDS ORDERED: POTASSIUM CHLORIDE 10 MEQ TABER PO PRN (06:10)
[2023-02-02] MEDS ORDERED: HYDROcodone/APAP 5/325 MG 1 TAB TAB PO PRN (06:10)
[2023-02-02] MEDS ORDERED: MORPHINE SULFATE 4 MG/ML SYR IVP PRN (06:10)
[2023-02-02] MEDS ORDERED: ACETAMINOPHEN 325 MG TAB PO PRN (06:10)
[2023-02-02] MEDS ORDERED: ONDANSETRON 4 MG/2 ML VIAL IVP PRN (06:10)
[2023-02-02] MEDS ORDERED: POTASSIUM CHLORIDE 10 MEQ TABER PO ONE (06:10)
[2023-02-02] MEDS: NACL 0.9% 1,000 ML IV SCH ×2 (06:10→17:21)
[2023-02-02] MEDS ORDERED: AZITHROMYCIN 500 MG INJ VIAL IV ONE (08:35)
[2023-02-02] MEDS: AZITHROMYCIN 500 MG in DEXTROSE 5% 250 ML IV SCH (08:43)
[2023-02-02] MEDS: KCL 20 MEQ IN 100 mL PREMIX 200 ML IV PRN ×2 (09:03→11:19)
[2023-02-02 17:00] VITALS: PULSE 95; RESP 15; O2SAT 98
[2023-02-02 17:28] VITALS: BP 117/50; PULSE 100; RESP 18; TEMP 97; O2SAT 95
[2023-02-02 19:55] VITALS: PULSE 97
[2023-02-02 20:00] VITALS: BP 122/46; PULSE 98; RESP 18; TEMP 99; O2SAT 92
[2023-02-02 23:55] VITALS: PULSE 83
[2023-02-03] VITALS: BP 125/52; PULSE 89; RESP 17; TEMP 99.2; O2SAT 93
[2023-02-03 04:00] VITALS: BP 148/68; PULSE 83; PULSE 84; RESP 18; TEMP 98.3; O2SAT 96
[2023-02-03 06:47] LABS: BASOPHILS # (AUTO) 0.1 K/uL (0.00-0.22); BASOPHILS % (AUTO) 1.3 % (0.0-2.0); EOSINOPHILS # (AUTO) 0.3 K/uL (0-0.4); EOSINOPHILS % (AUTO) 2.8 % (0.0-4.0); HEMATOCRIT 39.1 % (36-48); HEMOGLOBIN 13.4 g/dL (12.0-16.0); LYMPHOCYTES # (AUTO) 4.2 K/uL (2.5-16.5); LYMPHOCYTES % (AUTO) 40.6 % (20.5-51.1); MEAN CORPUSCULAR HEMOGLOBIN 32 pg (27-31); MEAN CORPUSCULAR HGB CONC 34 g/dL (33-37); MEAN CORPUSCULAR VOLUME 93.1 fL (80-94); MONOCYTES # (AUTO) 0.7 K/uL (0.8-1.0); NEUTROPHILS % (AUTO) 48.3 % (42.2-75.2); PLATELET COUNT (AUTO) 257 K/uL (140-450); RED CELL DISTRIBUTION WIDTH 14.2 % (11.6-13.7); WHITE BLOOD COUNT (AUTO) 10.4 K/uL (4.8-10.8)
[2023-02-03 07:05] LABS: ANION GAP 13.3 (8-16); CALCIUM 8.2 mg/dL (8.5-10.1); CARBON DIOXIDE 21.3 mmol/L (21-32); CHLORIDE 100 mmol/L (98-107); GLUCOSE 99 mg/dL (74-106); POTASSIUM 3.6 mmol/L (3.5-5.1); SODIUM SERUM 131 mmol/L (136-145); UREA NITROGEN, BLOOD 5 mg/dL (7-18)
[2023-02-03] MEDS: NACL 0.9% 1,000 ML IV SCH ×2 (07:10→20:13)
[2023-02-03 08:00] VITALS: BP 147/77; PULSE 87; RESP 18; TEMP 96.9; O2SAT 99
[2023-02-03] MEDS: AZITHROMYCIN 500 MG in DEXTROSE 5% 250 ML IV SCH (08:39)
[2023-02-03 12:00] VITALS: BP 146/89; PULSE 90; PULSE 97; RESP 18; TEMP 99.4; O2SAT 99
[2023-02-03 16:00] VITALS: BP 139/68; PULSE 60; PULSE 92; RESP 20; TEMP 97.8; O2SAT 98
[2023-02-03] MEDS ORDERED: INSULIN LISPRO SLIDING SCALE 100 UNITS/ML VIAL SUBQ PRN (19:15)
[2023-02-03 20:00] VITALS: BP 138/65; PULSE 84; PULSE 85; RESP 18; TEMP 97.7; O2SAT 97
[2023-02-03] MEDS: BLOOD GLUCOSE MONITORING 1 DEV DEV FS SCH (20:17)
[2023-02-04] VITALS: BP 140/72; PULSE 78; PULSE 87; RESP 18; TEMP 98; O2SAT 97
[2023-02-04 04:00] VITALS: BP 142/76; PULSE 79; PULSE 81; RESP 18; TEMP 98.2; O2SAT 97
[2023-02-04] MEDS: BLOOD GLUCOSE MONITORING 1 DEV DEV FS SCH ×2 (06:30→11:24)
[2023-02-04 07:06] LABS: HEMATOCRIT 36.6 % (36-48); HEMOGLOBIN 12.5 g/dL (12.0-16.0); MEAN CORPUSCULAR HEMOGLOBIN 32 pg (27-31); MEAN CORPUSCULAR HGB CONC 34 g/dL (33-37); MEAN CORPUSCULAR VOLUME 92.5 fL (80-94); PLATELET COUNT (AUTO) 277 K/uL (140-450); RED BLOOD CELL COUNT(AUTO) 3.96 MIL/uL (4.20-5.40); RED CELL DISTRIBUTION WIDTH 13.9 % (11.6-13.7); WHITE BLOOD COUNT (AUTO) 7.8 K/uL (4.8-10.8)
[2023-02-04 07:16] LABS: ANION GAP 12.5 (8-16); CALCIUM 8.3 mg/dL (8.5-10.1); CARBON DIOXIDE 24.5 mmol/L (21-32); CHLORIDE 96 mmol/L (98-107); CREATININE 0.9 mg/dL (0.6-1.3); GLUCOSE 98 mg/dL (74-106); SODIUM SERUM 130 mmol/L (136-145); UREA NITROGEN, BLOOD 4 mg/dL (7-18)
[2023-02-04 07:40] LABS: EOSINOPHILS % (MANUAL) 6 % (0-4); LYMPHOCYTES % (MANUAL) 46 % (20-46); MONOCYTES % (MANUAL) 10 % (5-12)
[2023-02-04 08:00] VITALS: BP 142/72; PULSE 80; PULSE 84; RESP 18; TEMP 97; O2SAT 98
[2023-02-04] MEDS: NACL 0.9% 1,000 ML IV SCH (08:55)
[2023-02-04] MEDS: AZITHROMYCIN 500 MG in DEXTROSE 5% 250 ML IV SCH (08:55)
[2023-02-04] MEDS: KCL 20 MEQ IN 100 mL PREMIX 200 ML IV PRN (11:49)
[2023-02-04 12:00] VITALS: BP 132/66; PULSE 81; PULSE 83; RESP 18; TEMP 97.9; O2SAT 98
[2023-02-04] MEDS ORDERED: NITR100C7 PO (12:29)
[2023-02-04 12:56] VITALS: BP 142/72; PULSE 80; RESP 18; TEMP 97
[2023-02-04] MEDS ORDERED: MEROPENEM 1,000 MG in NACL 0.9% 50 ML IV SCH (13:00)
== END 2023-02-04 15:45 | disposition home or self-care (01) | DRG 720 ==
LOC: MED 02:25 → MTU 06:11
PROVIDERS: ADMIT Hospitalist; ATTEND Hospitalist
DX: A41.9 Sepsis, unspecified organism (principal); J18.9 Pneumonia, unspecified organism; E44.0 Moderate protein-calorie malnutrition; I69.351 Hemiplegia and hemiparesis following cerebral infarction affecting right dominant side; N39.0 Urinary tract infection, site not specified; E07.9 Disorder of thyroid, unspecified; M81.0 Age-related osteoporosis without current pathological fracture; Z79.82 Long term (current) use of aspirin; Z79.899 Other long term (current) drug therapy; Z68.30 Body mass index [BMI] 30.0-30.9, adult
CPT/HCPCS: 36415; 71045; 80048; 80053; 81001; 82948; 83605; 83735; 85025; 87040; 87081; 87086; 93005; 96365; 99291; J0456; J0696; J1644; J2185; J2270; J2405; J3480; J7060

== ENCOUNTER 2023-10-22 05:55 | Emergency (ER) | payer OTHER ==
[~2023-10-22] VITALS: Ht 147.3 cm; Wt 45.4 kg
[~2023-10-22 05:55] MED LIST changes: +ACET-10509 PO; +CALC1TAB72 PO; -CIPR500T4 PO; +EZET10TA84 PO; +GABA300C PO; +HYDR10TA1 PO; +HYDR12.51 PO; +LISI40TA12 PO; -METR-435 PO; +OMEP-303 PO
[2023-10-22 05:59] VITALS: BP 148/71; PULSE 97; RESP 16; TEMP 99.2; O2SAT 97
[2023-10-22] MEDS ORDERED: NIRM1TAB9 PO (06:39)
[2023-10-22] MEDS ORDERED: IBUP-1842 PO (06:39)
[2023-10-22] MEDS: KETOROLAC 60 MG/2 ML VIAL IM ONE (06:42)
[2023-10-22 07:00] VITALS: BP 159/76; PULSE 87; RESP 36; TEMP 99.2; O2SAT 95
== END 2023-10-22 07:00 | disposition home or self-care (01) ==
LOC: MED 05:55
DX: U07.1 COVID-19 (principal); E11.9 Type 2 diabetes mellitus without complications; I10 Essential (primary) hypertension; Z87.448 Personal history of other diseases of urinary system; Z86.39 Personal history of other endocrine, nutritional and metabolic disease; Z86.73 Personal history of transient ischemic attack (TIA), and cerebral infarction without residual deficits; Z79.899 Other long term (current) drug therapy; Z79.82 Long term (current) use of aspirin
CPT/HCPCS: 96372; 99283; J1885

== ENCOUNTER 2023-11-29 17:23 | Emergency (ER) | payer OTHER ==
[~2023-11-29] VITALS: Ht 152.4 cm; Wt 52.4 kg
[~2023-11-29 17:23] MED LIST changes: -ACET-10509 PO; +ACET500T99 PO; +IBUP-1842 PO; +NIRM1TAB9 PO
[2023-11-29 17:24] VITALS: BP 157/82; PULSE 86; RESP 19; TEMP 97.7; O2SAT 94
[2023-11-29] MEDS: KETOROLAC 30 MG/ML VIAL IM ONE (18:56)
== END 2023-11-29 21:06 | disposition home or self-care (01) ==
LOC: MED 17:23
DX: S09.90XA Unspecified injury of head, initial encounter (principal); E11.9 Type 2 diabetes mellitus without complications; I10 Essential (primary) hypertension; Z86.73 Personal history of transient ischemic attack (TIA), and cerebral infarction without residual deficits; Z87.448 Personal history of other diseases of urinary system; Z98.890 Other specified postprocedural states; Z79.899 Other long term (current) drug therapy; Z79.82 Long term (current) use of aspirin; W06.XXXA Fall from bed, initial encounter; Y93.89 Activity, other specified; Y92.89 Other specified places as the place of occurrence of the external cause; Y99.8 Other external cause status
CPT/HCPCS: 70450; 72125; 82948; 96372; 99285; J1885

== ENCOUNTER 2023-12-19 11:07 | Emergency (ER) | payer OTHER ==
[~2023-12-19] VITALS: Ht 157.5 cm; Wt 54.4 kg
[2023-12-19 11:09] VITALS: BP 155/77; PULSE 76; RESP 16; TEMP 98.5; O2SAT 97
[2023-12-19 11:22] VITALS: O2SAT 97
[2023-12-19 11:54] LABS: BASOPHILS # (AUTO) 0.1 K/uL (0.00-0.22); EOSINOPHILS # (AUTO) 0.2 K/uL (0-0.4); EOSINOPHILS % (AUTO) 2.4 % (0.0-4.0); HEMATOCRIT 41.1 % (36-48); HEMOGLOBIN 13.9 g/dL (12.0-16.0); LYMPHOCYTES # (AUTO) 3.8 K/uL (2.5-16.5); LYMPHOCYTES % (AUTO) 42.6 % (20.5-51.1); MEAN CORPUSCULAR HEMOGLOBIN 31 pg (27-31); MEAN CORPUSCULAR HGB CONC 34 g/dL (33-37); MEAN CORPUSCULAR VOLUME 90.9 fL (80-94); MONOCYTES # (AUTO) 0.6 K/uL (0.8-1.0); MONOCYTES % (AUTO) 6.3 % (1.7-9.3); NEUTROPHILS # (AUTO) 4.2 K/uL (1.8-7.7); NEUTROPHILS % (AUTO) 47.7 % (42.2-75.2); PLATELET COUNT (AUTO) 308 K/uL (140-450); RED BLOOD CELL COUNT(AUTO) 4.52 MIL/uL (4.20-5.40); RED CELL DISTRIBUTION WIDTH 13.4 % (11.6-13.7); WHITE BLOOD COUNT (AUTO) 8.8 K/uL (4.8-10.8)
[2023-12-19] MEDS: NACL 0.9% 1,000 ML IV ONE (11:59)
[2023-12-19] MEDS: FAMOTIDINE 20 MG/2 ML VIAL IVP ONE (12:11)
[2023-12-19] MEDS: ONDANSETRON 4 MG/2 ML VIAL IVP ONE (12:11)
[2023-12-19 12:13] LABS: ANION GAP 10.7 (8-16); CALCIUM 8.9 mg/dL (8.5-10.1); CHLORIDE 96 mmol/L (98-107); CREATININE 0.9 mg/dL (0.6-1.3); GLUCOSE 97 mg/dL (74-106); POTASSIUM 3.7 mmol/L (3.5-5.1); SODIUM SERUM 133 mmol/L (136-145); UREA NITROGEN, BLOOD 10 mg/dL (7-18)
[2023-12-19 12:22] LABS: ALANINE AMINOTRANSFERASE 28 U/L (12-78); ALBUMIN 3.4 g/dL (3.4-5.0); ALKALINE PHOSPHATASE 118 U/L (50-136); ASPARTATE AMINOTRANSFERASE 34 U/L (15-37); BILIRUBIN,DIRECT 0.1 mg/dL (0.0-0.3); LIPASE 57 U/L (16-77); TOTAL BILIRUBIN 0.5 mg/dL (0.0-1.0); TOTAL PROTEIN, SERUM 7.3 g/dL (6.4-8.2)
[2023-12-19 13:08] LABS: APPEARANCE,URINE CLEAR (CLEAR); BILIRUBIN,URINE NEGATIVE (NEGATIVE); BLOOD, URINE 2+ (NEGATIVE); COLOR,URINE YELLOW (YELLOW); LEUKOCYTE ESTERASE ,URINE NEGATIVE (NEGATIVE); NITRITE, URINE NEGATIVE (NEGATIVE); PH,URINE 6.5 (5.0-9.0); PROTEIN,URINE NEGATIVE (NEGATIVE); UGLUCOSE NEGATIVE (NEGATIVE); UROBILINOGEN,URINE 0.2 EU/dL (0.2 - 1)
[2023-12-19 13:15] LABS: BACTERIA,URINE FEW /HPF (None Seen); WBC,URINE 0-5 /HPF (0-5)
[2023-12-19 13:16] LABS: MUCUS,URINE None Seen /LPF (None Seen); SQUAMOUS EPITHELIAL CELL,UR 0-3 (FEW) /LPF (0-3 (FEW))
[2023-12-19 13:22] VITALS: O2SAT 97
[2023-12-19 13:24] LABS: FLU B ANTIGEN negative (NEGATIVE)
[2023-12-19 13:36] LABS: FLU A ANTIGEN POSITIVE (NEGATIVE)
[2023-12-19 13:40] VITALS: BP 136/58; PULSE 83; RESP 18; TEMP 98.5; O2SAT 97
[2023-12-19] MEDS ORDERED: ONDA-188 PO (13:42)
[2023-12-19] MEDS ORDERED: TAM75 PO (13:42)
== END 2023-12-19 14:26 | disposition home or self-care (01) ==
LOC: MED 11:07
DX: J10.1 Influenza due to other identified influenza virus with other respiratory manifestations (principal); E11.9 Type 2 diabetes mellitus without complications; I10 Essential (primary) hypertension; E03.9 Hypothyroidism, unspecified; Z20.822 Contact with and (suspected) exposure to COVID-19; Z86.73 Personal history of transient ischemic attack (TIA), and cerebral infarction without residual deficits; Z79.899 Other long term (current) drug therapy; Z79.84 Long term (current) use of oral hypoglycemic drugs
CPT/HCPCS: 36415; 71045; 80048; 80076; 81001; 82948; 83690; 83880; 84484; 85025; 87086; 87426; 87804; 93005; 96374; 96375; 99285; J2405; J3490; J7030